=== PATIENT | female | born 1995 | race Hispanic/Latino ===

== ENCOUNTER → 2016-06-23 | Outpatient (CLI) | payer OTHER ==
[~2016-06-23] MED LIST: AMOX500C2 PO; CYCL10TA9 PO; NAPR500T PO; PRD20T PO
--- NOTE | 2016-06-23 13:34 | Diagnostic Imaging Report ---
OB ultrasound. INDICATION: Uncertain dates. FINDINGS: There are no prior studies available for comparison. There is a gestational sac within the uterus containing a single live fetus. heart motion is noted and a rate of 153 bpm is recorded. The crown-rump length suggests the estimated gestational age is 11 weeks +/- 1 week. There are no obvious abnormalities identified. The amniotic fluid volume is within normal limits. At this time, it is not certain where the placenta will develop. There is no pelvic mass or free fluid collection noted. Neither ovary is identified, however. IMPRESSION: 1. There is a single live intrauterine fetus of approximately 11 weeks gestation +/- 1 week. The EDC is January 12, 2017. 2. There are no obvious abnormalities identified. If a more sensitive evaluation of the anatomy is desired, then a follow-up exam in 8-10 weeks will be recommended for additional study. Dictated by: Dictated on workstation # [id number]
== END ==
LOC: RAD 09:17
PROVIDERS: ATTEND Family Medicine
DX: Z34.01 Encounter for supervision of normal first pregnancy, first trimester (principal); Z3A.11 11 weeks gestation of pregnancy
CPT/HCPCS: 76801

== ENCOUNTER 2016-08-30 10:23 | Emergency (ER) | payer OTHER ==
[~2016-08-30] VITALS: Ht 142.2 cm; Wt 57.6 kg
[2016-08-30] MEDS ORDERED: RT-ALBUTEROL/IPRATROPIUM 3 ML (DUONEB) VIAL ONE (10:53)
[2016-08-30] MEDS ORDERED: RT-ALBUTEROL/IPRATROPIUM 3 ML (DUONEB) VIAL INH ONE (11:00)
[2016-08-30 11:08] LABS: BASOPHILS % (AUTO) 0 % (0-10); EOSINOPHILS # (AUTO) 0.6 10^3/uL (0.0-0.3); EOSINOPHILS % (AUTO) 4 % (0-10); LYMPHOCYTES # (AUTO) 1.7 X 10^3 (1.0-4.0); LYMPHOCYTES % (AUTO) 11 % (12-44); MEAN CORPUSCULAR HEMOGLOBIN 29 PG (25-34); MEAN CORPUSCULAR HGB CONC 35 G/DL (32-36); MEAN CORPUSCULAR VOLUME 83 FL (80-99); MEAN PLATELET VOLUME 9.9 FL (7.4-10.4); MONOCYTES # (AUTO) 0.9 X 10^3 (0.0-1.0); MONOCYTES % (AUTO) 6 % (0-12); NEUTROPHILS # (AUTO) 11.9 X 10^3 (1.8-7.8); NEUTROPHILS % (AUTO) 79 % (42-75); PLATELET COUNT 272 10^3/uL (130-400); RED CELL DISTRIBUTION WIDTH 14.1 % (10.0-14.5); WHITE BLOOD COUNT 15.2 10^3/uL (4.3-11.0)
[2016-08-30 11:21] LABS: ALANINE AMINOTRANSFERASE 23 U/L (0-55); ALBUMIN 3.7 G/DL (3.2-4.5); ANION GAP 9 MMOL/L (5-14); ASPARTATE AMINO TRANSFERASE 20 U/L (5-34); BILIRUBIN,TOTAL 0.2 MG/DL (0.1-1.0); BLOOD UREA NITROGEN 4 MG/DL (7-18); BUN/CREATININE RATIO 8; CARBON DIOXIDE 21 MMOL/L (21-32); CHLORIDE 107 MMOL/L (98-107); CREATININE SERUM 0.52 MG/DL (0.60-1.30); GFR ESTIMATED > 60; GLUCOSE 93 MG/DL (70-105); POTASSIUM 3.5 MMOL/L (3.6-5.0); SODIUM 137 MMOL/L (135-145); TOTAL PROTEIN 7.1 G/DL (6.4-8.2)
[2016-08-30 11:27] LABS: BILIRUBIN,URINE NEGATIVE (NEGATIVE); KETONES,URINE NEGATIVE (NEGATIVE); LEUKOCYTE ESTERASE ,URINE 2+ (NEGATIVE); NITRITE,URINE NEGATIVE (NEGATIVE); PH,URINE 7 (5-9); PROTEIN,URINE NEGATIVE (NEGATIVE); UROBILINOGEN,URINE NORMAL (NORMAL)
[2016-08-30 11:40] LABS: SQUAMOUS EPITHELIAL CELL,UR >50 /HPF
[2016-08-30 11:44] LABS: BAND NEUTROPHILS 0 %; BASOPHILS % (MANUAL) 0 %; EOSINOPHILS % (MANUAL) 9 %; LYMPHOCYTES % (MANUAL) 12 %; NEUTROPHILS % (MANUAL) 76 %
--- NOTE | 2016-08-30 12:08 | ED Cough/URI ---
General Chief Complaint: Cough/Cold/Flu Symptoms Stated Complaint: FATIGUE Nursing Triage Note: PT REPORTS FLU LIKE SYMPTOMS SINCE LAST NOC. Source: patient, family Exam Limitations: no limitations History of Present Illness Time seen by provider: 12:03 Initial Comments This 20-year-old female presents with cough and wheezing and chest discomfort that began last night. Patient is 20 weeks into her current gestation. There is been no associated abdominal pain or vaginal bleeding. The patient denies headache, stiff neck, palpitations, chest pain, vomiting, diarrhea, or dysuria. Patient's is been uncomplicated. The patient will see her tube dispatcher for her first ultrasound this coming week. Allergies and Home Medications Allergies Coded Allergies: No Known Drug Allergies (Unverified , 02/27/15) Home Medications Amoxicillin 500 Mg Capsule, 1,000 MG PO TID, #42 Ref 0 Prescribed by: CHRISTIAN TIAN on 02/02/16 1429 Cyclobenzaprine HCl 10 Mg Tablet, 10 MG PO Q8H PRN for SPASMS, #10 Ref 0 Prescribed by: CHRISTIAN TIAN on 02/27/152032 Naproxen 500 Mg Tablet, 500 MG PO BID PRN for PAIN, #20 Ref 0 Prescribed by: CHRISTIAN TIAN on 02/27/152032 Prednisone 20 Mg Tab, 40 MG PO DAILY, #10 Ref 0 Prescribed by: CHRISTIAN TIAN on 02/27/152032 Constitutional: see HPI, No chills, No fever, malaise EENTM: No ear pain, No throat pain Respiratory: see HPI, cough, No hemoptysis, No short of breath, wheezing Cardiovascular: No chest pain, No palpitations Gastrointestinal: No abdominal pain, No nausea, No vomiting Genitourinary: No dysuria, No frequency : Yes Expected Date of Delivery: Jan 12, 2017 Musculoskeletal: no symptoms reported Skin: no symptoms reported Psychiatric/Neurological: No Symptoms Reported Hematologic/Lymphatic: No Symptoms Reported Immunological/Allergic: no symptoms reported Past Vfbrukt-Xvtxad-Omqxmv Hx Patient Social History Alcohol Use: Denies Use Recreational Drug Use: No Smoking Status: Never a Smoker 2nd Hand Smoke Exposure: No Recent Foreign Travel: No Contact w/Someone Who Travel: No Recent Infectious Disease Expo: No Recent Hopitalizations: No Immunizations Up To Date Tetanus Booster (TDap): Unknown PED Vaccines UTD: Yes Date of Influenza Vaccine: Jul 02, 2016 Seasonal Allergies Seasonal Allergies: No Surgeries HX Surgeries: No Respiratory Hx Respiratory Disorders: No Cardiovascular Hx Cardiac Disorders: No Neurological Hx Neurological Disorders: No Reproductive System : Yes Hx : 1 Hx Para: 0 Hx Reproductive Disorders: No Genitourinary Hx Genitourinary Disorders: No Gastrointestinal Hx Gastrointestinal Disorders: No Musculoskeletal Hx Musculoskeletal Disorders: No Endocrine Hx Endocrine Disorders: No HEENT HX ENT Disorders: No Cancer Hx Cancer: No Psychosocial Hx Psychiatric Problems: No Integumentary HX Skin/Integumentary Disorder: No Blood Transfusions Hx Blood Disorders: No Reviewed Nursing Assessment Reviewed/Agree w Nursing PMH: Yes Family Medical History Significant Family History: No Pertinent Family Hx Physical Exam Vital Signs Vital Sign - Last 12Hours Capillary Refill : Less Than 3 Seconds Eyes: Bilateral Eye Normal Inspection HEENT: normal ENT inspection Neck: normal inspection Respiratory: lungs clear, normal breath sounds, no respiratory distress Cardiovascular: regular rate, rhythm Gastrointestinal: normal bowel sounds, non tender Extremities: normal range of motion, non-tender Neurologic/Psychiatric: no motor/sensory deficits, alert, normal mood/affect Skin: normal color, warm/dry Progress/Results/Core Measures Results/Orders Lab Results Laboratory Tests Test 08/30/16 10:45 08/30/16 11:19 Range/Units White Blood Count 15.2 H 4.3-11.0 10^3/uL Red Blood Count 4.10 L 4.35-5.85 10^6/uL Hemoglobin 11.8 11.5-16.0 G/DL Hematocrit 34 L 35-52 % Mean Corpuscular Volume 83 80-99 FL Mean Corpuscular Hemoglobin 29 25-34 PG Mean Corpuscular Hemoglobin Concent 35 32-36 G/DL Red Cell Distribution Width 14.1 10.0-14.5 % Platelet Count 272 130-400 10^3/uL Mean Platelet Volume 9.9 7.4-10.4 FL Neutrophils (%) (Auto) 79 H 42-75 % Lymphocytes (%) (Auto) 11 L 12-44 % Monocytes (%) (Auto) 6 0-12 % Eosinophils (%) (Auto) 4 0-10 % Basophils (%) (Auto) 0 0-10 % Neutrophils # (Auto) 11.9 H 1.8-7.8 X 10^3 Lymphocytes # (Auto) 1.7 1.0-4.0 X 10^3 Monocytes # (Auto) 0.9 0.0-1.0 X 10^3 Eosinophils # (Auto) 0.6 H 0.0-0.3 10^3/uL Basophils # (Auto) 0.0 0.0-0.1 10^3/uL Neutrophils % (Manual) 76 % Lymphocytes % (Manual) 12 % Monocytes % (Manual) 3 % Eosinophils % (Manual) 9 % Basophils % (Manual) 0 % Band Neutrophils 0 % Blood Morphology Comment NORMAL Sodium Level 137 135-145 MMOL/L Potassium Level 3.5 L 3.6-5.0 MMOL/L Chloride Level 107 98-107 MMOL/L Carbon Dioxide Level 21 21-32 MMOL/L Anion Gap 9 5-14 MMOL/L Blood Urea Nitrogen 4 L 7-18 MG/DL Creatinine 0.52 L 0.60-1.30 MG/DL Estimat Glomerular Filtration Rate > 60 BUN/Creatinine Ratio 8 Glucose Level 93 70-105 MG/DL Calcium Level 9.0 8.5-10.1 MG/DL Total Bilirubin 0.2 0.1-1.0 MG/DL Aspartate Amino Transf (AST/SGOT) 20 5-34 U/L Alanine Aminotransferase (ALT/SGPT) 23 0-55 U/L Alkaline Phosphatase 75 40-136 U/L Total Protein 7.1 6.4-8.2 G/DL Albumin 3.7 3.2-4.5 G/DL Urine Color YELLOW Urine Clarity CLEAR Urine pH 7 5-9 Urine Specific [place] 1.005 L 1.016-1.022 Urine Protein NEGATIVE NEGATIVE Urine Glucose (UA) NEGATIVE NEGATIVE Urine Ketones NEGATIVE NEGATIVE Urine Nitrite NEGATIVE NEGATIVE Urine Bilirubin NEGATIVE NEGATIVE Urine Urobilinogen NORMAL NORMAL MG/DL Urine Leukocyte Esterase 2+ H NEGATIVE Urine RBC (Auto) 1+ H NEGATIVE Urine RBC RARE /HPF Urine WBC 2-5 /HPF Urine Squamous Epithelial Cells >50 H /HPF Urine Crystals NONE /LPF Urine Bacteria MODERATE H /HPF Urine Casts NONE /LPF Urine Mucus NEGATIVE /LPF Urine Culture Indicated NO Micro Results Microbiology 08/30/16 Influenza Types A,B Antigen (ROSS) - Final, Complete My Orders Orders - DEQUAN SIMMONS MD Cbc With Automated Diff (08/30/16 10:52) Comprehensive Metabolic Panel (08/30/16 10:52) Ua Culture If Indicated (08/30/16 10:52) Influenza A And B Antigens (08/30/16 10:52) Albuterol/Ipra Inhalation Soln (Duoneb I (08/30/16 11:00) Svn Sm Volume Nebulizer Rt-Rfs (08/30/16 10:52) Albuterol/Ipra Inhalation Soln (Duoneb I (08/30/16 10:53) Manual Differential (08/30/16 10:45) Medications Given in ED Current Medications Medications Dose Ordered Sig/Whit Route Start Time Stop Time Status Last Admin Dose Admin Albuterol/ Ipratropium 3 ml STK-MED ONCE .ROUTE 08/30/16 10:53 08/30/16 10:57 DC 08/30/16 10:58 3 ML Vital Signs/I&O Vital Sign - Last 12Hours 08/30/16 08/30/16 08/30/16 10:40 10:40 10:59 Temp 98.2 Pulse 85 Resp 16 B/P (MAP) 114/68 Pulse Ox 98 95 O2 Delivery Room Air Room Air Blood Pressure Mean: 83 Progress Note : Time: 12:10 Progress Note The patient's wheezing and respiratory symptoms were significantly improved with a DuoNeb treatment. The patient's white count was elevated. The patient's bedside ultrasound demonstrated a viable intrauterine with a heart rate of 150. Patient was placed on Ventolin inhaler, amoxicillin, and asked to encourage fluids and rest today. She was asked to return if any problems or questions. Departure Impression Impression: Primary Impression: Asthmatic bronchitis Qualified Codes: J45.909 - Unspecified asthma, uncomplicated Departure-Patient Inst. Decision time for Depature: 12:18 Referrals: KYARA PALACIOS MD (PCP/Family) Primary Care Physician Patient Instructions: Acute Bronchitis, Adult (DC) Add. Discharge Instructions: Z-Albert and Ventolin inhaler as prescribed. Close follow-up with your tube dispatcher this week. Return of any problems or questions. All discharge instructions reviewed with patient and/or family. Voiced understanding. DEQUAN SIMMONS MD Aug 30, 2016 12:08
[2016-08-30 12:25] VITALS: BP 114/68
--- OUTSIDE RECORDS SUMMARY | 2016-09-22 12:05 | XMS REPORT | Continuity of Care Document ---
Author Author [facility] Organization [facility] Address Unknown Phone Unavailable Allergies Active Description Code Type Severity Reaction Onset Reported/Identified Relationship to Patient Clinical Status Yes No Known Drug Allergies [id number] Drug Allergy Unknown N/ A 02/27/2015 Medications Problems Date Dx Coded Attending Type Code Diagnosis Diagnosed By 02/24/2015 SEBASTIÁN ZAZUETA MD Ot 723.1 CERVICALGIA 02/24/2015 SEBASTIÁN ZAZUETA MD Ot 784.2 SWELLING IN HEAD NECK 02/27/2015 CHRISTIAN CRUZ Ot 784.2 SWELLING IN HEAD NECK 02/27/2015 CHRISTIAN CRUZ Ot 847.0 SPRAIN OF NECK 02/27/2015 CHRISTIAN CRUZ Ot 847.1 SPRAIN THORACIC REGION 02/27/2015 CHRISTIAN CRUZ Ot E000.8 OTHER EXTERNAL CAUSE STATUS 02/27/2015 CHRISTIAN CRUZ Ot E928.9 ACCIDENT NOS 02/02/2016 CHRISTIAN CRUZ Ot H66.91 OTITIS MEDIA, UNSPECIFIED, RIGHT EAR 02/02/2016 CHRISTIAN CRUZ Ot H92.01 OTALGIA, RIGHT EAR 02/02/2016 CHRISTIAN CRUZ Ot J06.9 ACUTE UPPER RESPIRATORY INFECTION, UNSPE 06/24/2016 KYARA PALACIOS MD Ot Z34.01 ENCNTR FOR SUPRVSN OF NORMAL FIRST PREG, 06/24/2016 KYARA PALACIOS MD Ot Z3A.11 11 WEEKS GESTATION OF 07/02/2016 KYARA PALACIOS MD Ot Z34.01 ENCNTR FOR SUPRVSN OF NORMAL FIRST PREG, 07/02/2016 KYARA PALACIOS MD Ot Z3A.11 11 WEEKS GESTATION OF 08/30/2016 KYARA PALACIOS MD Ot Z34.01 ENCNTR FOR SUPRVSN OF NORMAL FIRST PREG, 08/30/2016 SUZANNE LE, KYARA N Ot Z3A.11 11 WEEKS GESTATION OF 09/01/2016 DEQUAN SIMMONS MD Ot J45.998 OTHER ASTHMA 09/01/2016 DEQUAN SIMMONS MD Ot O99.512 DISEASES OF THE RESP SYS COMP , 09/01/2016 DEQUAN SIMMONS MD Ot R05 COUGH 09/01/2016 DEQUAN SIMMONS MD Ot Z3A.20 20 WEEKS GESTATION OF Procedures Results Test Result Range Influenza virus A and B antigen detection - 02/02/16 13:50 FLU RESULT NEGATIVE FOR INFLUENZA A AND B ANTIGENS BY [facility] Complete blood count (CBC) with automated white blood cell (WBC) differential - 08/30/16 10:45 Blood leukocytes automated count (number/volume) 15.2 10*3/ uL 4.3-11.0 Blood erythrocytes automated count (number/volume) 4.10 10*6 /uL 4.35-5.85 Venous blood hemoglobin measurement (mass/volume) 11.8 g/dL 11.5-16.0 Blood hematocrit (volume fraction) 34 % 35-52 Automated erythrocyte mean corpuscular volume 83 [foz_us] 80-99 Automated erythrocyte mean corpuscular hemoglobin (mass per erythrocyte) 29 pg 25-34 Automated erythrocyte mean corpuscular hemoglobin concentration measurement ( mass/volume) 35 g/dL 32-36 Automated erythrocyte distribution width ratio 14.1 % 10.0-14.5 Automated blood platelet count (count/volume) 272 10*3/uL 130-400 Automated blood platelet mean volume measurement 9.9 [foz_us ] 7.4-10.4 Automated blood neutrophils/100 leukocytes 79 % 42-75 Automated blood lymphocytes/100 leukocytes 11 % 12-44 Blood monocytes/100 leukocytes 6 % 0-12 Automated blood eosinophils/100 leukocytes 4 % 0-10 Automated blood basophils/100 leukocytes 0 % 0-10 Blood neutrophils automated count (number/volume) 11.9 10*3 1.8-7.8 Blood lymphocytes automated count (number/volume) 1.7 10*3 1.0-4.0 Blood monocytes automated count (number/volume) 0.9 10*3 0.0-1.0 Automated eosinophil count 0.6 10*3/uL 0.0-0.3 Automated blood basophil count (count/volume) 0.0 10*3/uL 0.0-0.1 Influenza virus A and B antigen detection - 08/30/16 10:45 FLU RESULT NEGATIVE FOR INFLUENZA A AND B ANTIGENS BY [facility] Comprehensive metabolic panel - 08/30/16 10:45 Serum or plasma sodium measurement (moles/volume) 137 mmol/ L 135-145 Serum or plasma potassium measurement (moles/volume) 3.5 mmol/L 3.6-5.0 Serum or plasma chloride measurement (moles/volume) 107 mmol /L 98-107 Carbon dioxide 21 mmol/L 21-32 Serum or plasma anion gap determination (moles/volume) 9 mmol/L 5-14 Serum or plasma urea nitrogen measurement (mass/volume) 4 mg /dL 7-18 Serum or plasma creatinine measurement (mass/volume) 0.52 mg /dL 0.60-1.30 Serum or plasma urea nitrogen/creatinine mass ratio 8 NRG Serum or plasma creatinine measurement with calculation of estimated glomerular filtration rate > NRG Serum or plasma glucose measurement (mass/volume) 93 mg/dL 70-105 Serum or plasma calcium measurement (mass/volume) 9.0 mg/dL 8.5-10.1 Serum or plasma total bilirubin measurement (mass/volume) 0.2 mg/dL 0.1-1.0 Serum or plasma alkaline phosphatase measurement (enzymatic activity/volume) 75 U/L 40-136 Serum or plasma aspartate aminotransferase measurement (enzymatic activity/ volume) 20 U/L 5-34 Serum or plasma alanine aminotransferase measurement (enzymatic activity/volume ) 23 U/L 0-55 Serum or plasma protein measurement (mass/volume) 7.1 g/dL 6.4-8.2 Serum or plasma albumin measurement (mass/volume) 3.7 g/dL 3.2-4.5 Blood manual differential performed detection - 08/30/16 10:45 Blood monocytes/100 leukocytes 3 % NRG Manual blood segmented neutrophils/100 leukocytes 76 % NRG Blood band neutrophils/100 leukocytes 0 % NRG Manual blood lymphocytes/100 leukocytes 12 % NRG Manual eosinophils/100 leukocytes in nose 9 % NRG Manual blood basophils/100 leukocytes 0 % NRG Blood erythrocyte morphology finding identification NORMAL NR Complete urinalysis with reflex to culture - 08/30/16 11:19 Urine color determination YELLOW NRG Urine clarity determination CLEAR NRG Urine pH measurement by test strip 7 5- 9 Specific gravity of urine by test strip 1.005 1.016-1.022 Urine protein assay by test strip, semi-quantitative NEGATIVE NEGATIVE Urine glucose detection by automated test strip NEGATIVE NEGATIVE Erythrocytes detection in urine sediment by light microscopy 1+ NEGATIVE Urine ketones detection by automated test strip NEGATIVE NEGATIVE Urine nitrite detection by test strip NEGATIVE NEGATIVE Urine total bilirubin detection by test strip NEGATIVE NEGATIVE Urine urobilinogen measurement by automated test strip (mass/volume) NORMAL NORMAL Urine leukocyte esterase detection by dipstick 2+ NEGATIVE Automated urine sediment erythrocyte count by microscopy (number/high power field) RARE NRG Automated urine sediment leukocyte count by microscopy (number/high power field ) [HPF] NRG Bacteria detection in urine sediment by light microscopy MODERATE NRG Squamous epithelial cells detection in urine sediment by light microscopy >50 NRG Crystals detection in urine sediment by light microscopy NONE NRG Casts detection in urine sediment by light microscopy NONE NRG Mucus detection in urine sediment by light microscopy NEGATIVE NRG Complete urinalysis with reflex to culture NO NRG Encounters ACCT No. Visit Date/Time Discharge Status Pt. Type Provider Facility Loc./Unit Complaint [id number] 08/30/2016 10:25:00 2016 12:25:00 DIS Outpatient TROY LE, DEQUAN Echols [facility] ER FATIGUE [id number] 02/02/2016 10:23:00 2015 15:08:00 DIS Emergency CHRISTIAN CRUZ [facility] ER R EAR PAIN,COUGH,VOMITING [id number] 02/27/2015 19:19:00 2014 21:03:00 DIS Emergency CHRISTIAN CRUZ [facility] ER LUMP ON NECK HURTING [id number] 02/24/2015 17:21:00 2014 19:10:00 DIS Emergency CARLITA LE, SEBASTIÁN Headley [facility] ER LUMP ON NECK [id number] 06/23/2016 09:17:00 ACT Outpatient KYARA PALACIOS MD [facility] RAD NORMAL FIRST
== END 2016-08-30 12:25 | disposition home or self-care (01) ==
LOC: EDUNIT# 10:23 → ER 10:25
DX: O99.512 Diseases of the respiratory system complicating pregnancy, second trimester (principal); J45.998 Other asthma; Z3A.20 20 weeks gestation of pregnancy
CPT/HCPCS: 36415; 80053; 81000; 85007; 85027; 87804; 94640; 99283

== ENCOUNTER → 2016-09-14 | Outpatient (CLI) | payer OTHER ==
--- NOTE | 2016-09-14 18:12 | Diagnostic Imaging Report ---
INDICATION: 20-year-old female with positive TB skin test. COMPARISON: None. FINDINGS: Single view of the chest shows the cardiac contour to be normal. There are some prominent central lung markings with some minimal peribronchial cuffing. Bibasilar alveolar infiltrates are seen. Soft tissues and bony thorax are normal. IMPRESSION: 1. Some central reactive airway changes with peribronchial cuffing superimposed on some perihilar and bibasilar alveolar infiltrates. Departmental PA and lateral films of the chest would be of further value to better assess these findings. Dictated by: Dictated on workstation # [id number]
== END ==
LOC: RAD 17:15
PROVIDERS: ATTEND Family Medicine
DX: R76.11 Nonspecific reaction to tuberculin skin test without active tuberculosis (principal)
CPT/HCPCS: 71010

== ENCOUNTER → 2016-09-15 | Outpatient (CLI) | payer OTHER ==
--- NOTE | 2016-09-15 16:15 | Diagnostic Imaging Report ---
CLINICAL INDICATION: Patient with no chest complaints. Positive TB skin test. Patient is 5 months . Patient signed consent and was lead shielded. EXAM: Chest x-ray, PA and lateral views. COMPARISONS: Chest x-ray dated 09/14/2016. FINDINGS: Lungs/pleura: The previously seen bibasilar atelectasis has resolved. Lungs are now clear. There is no pneumothorax. There is no pleural effusion. Mediastinum: Unremarkable. Pulmonary vasculature: Unremarkable. Heart: Unremarkable. Bones/extrathoracic soft tissue: Unremarkable. IMPRESSION: There is no radiographic evidence of acute cardiopulmonary process or sequelae of TB. The previously seen bibasilar atelectasis has resolved. Dictated by: Dictated on workstation # [id number]
== END ==
LOC: RAD 14:51
PROVIDERS: ATTEND Family Medicine
DX: R76.11 Nonspecific reaction to tuberculin skin test without active tuberculosis (principal)
CPT/HCPCS: 71020

== ENCOUNTER → 2016-09-16 | Outpatient (CLI) | payer OTHER ==
--- NOTE | 2016-09-16 16:17 | Diagnostic Imaging Report ---
EXAMINATION: OB ultrasound. INDICATION: care. survey. FINDINGS: The heart rate is 132 BPM. The placenta is posterior and to the right. There is no placenta previa. The cervix is 4.1 cm in length and is closed. Adequate amniotic fluid is seen. The anatomic survey demonstrates a normal appearance of the four-chamber view, stomach, spine, kidneys, urinary bladder, and three-vessel cord with no ventriculomegaly and an unremarkable appearance of the posterior fossa seen. The growth parameters are: Biparietal diameter: 24 weeks 5 days. Head circumference: 24 weeks 3 days. Abdominal circumference: 24 weeks and 0 days. Femur length: 24 weeks and 1 day. These average at: 24 weeks and 3 days. This is within normal limits when compared to the current gestational age of 23 weeks and 1 day based on first trimester ultrasound dating. The biparietal diameter, however, is at the 91st percentile. IMPRESSION: Appropriate interval growth. Completed survey. Dictated by: Dictated on workstation # [id number]
== END ==
LOC: RAD 10:34
PROVIDERS: ATTEND Family Medicine
DX: Z36 Encounter for antenatal screening of mother (principal); Z3A.24 24 weeks gestation of pregnancy
CPT/HCPCS: 76805

== ENCOUNTER 2017-01-01 12:45 | Outpatient (CLI) | payer OTHER ==
[~2017-01-01] VITALS: Ht 142.2 cm; Wt 70.3 kg
[2017-01-01 13:00] VITALS: BP 127/68
[2017-01-01 13:25] LABS: BILIRUBIN,URINE NEGATIVE (NEGATIVE); KETONES,URINE NEGATIVE (NEGATIVE); LEUKOCYTE ESTERASE ,URINE 3+ (NEGATIVE); NITRITE,URINE NEGATIVE (NEGATIVE); PH,URINE 6.5 (5-9); PROTEIN,URINE 1+ (NEGATIVE); UROBILINOGEN,URINE NORMAL (NORMAL)
[2017-01-01 13:32] LABS: SQUAMOUS EPITHELIAL CELL,UR 25-50 /HPF
[2017-01-01 13:35] VITALS: BP 99/50
[2017-01-01 14:05] VITALS: BP 102/54
--- NOTE | 2017-01-04 11:23 | Physician Query-Final Dx ---
JAIDEN ROMERO 01/04/17 1123: Clinic Account Progress/Dx Physician Query: Please give diagnosis Date of Service Jan 01, 2017 at 12:45 KYARA PALACIOS MD 01/05/17 0835: Clinic Account Progress/Dx DIAGNOSIS: Diagnosis 38 weeks gestation Increased urination JAIDEN ROMERO Jan 04, 2017 11:23 KYARA PALACIOS MD Jan 05, 2017 08:35
== END 2017-01-01 14:50 | disposition home or self-care (01) ==
LOC: WSo 12:45 → LDRP 12:45 → WSo 13:05
PROVIDERS: ATTEND Family Medicine
DX: O99.89 Other specified diseases and conditions complicating pregnancy, childbirth and the puerperium (principal); R35.0 Frequency of micturition; Z3A.38 38 weeks gestation of pregnancy
CPT/HCPCS: 81000; 87088; 99213

== ENCOUNTER → 2017-01-01 | Outpatient (CLI) | payer OTHER | LOC: LAB 10:01 | PROVIDERS: ATTEND Family Medicine | DX: O36.63X0 Maternal care for excessive fetal growth, third trimester, not applicable or unspecified (principal); Z3A.00 Weeks of gestation of pregnancy not specified | CPT/HCPCS: 36415; 82951; 82952; 82962 ==

== ENCOUNTER → 2017-01-04 | Outpatient (CLI) | payer OTHER ==
--- NOTE | 2017-01-04 16:24 | Diagnostic Imaging Report ---
INDICATION: Large for gestational age. TECHNIQUE: Multiple Real-time grayscale images were obtained over the gravid uterus. COMPARISON: 09/16/2016. FINDINGS: The heart rate is 123 BPM. The amniotic fluid index is 11.8 cm. The placenta is fundal. No placenta previa. MEASUREMENTS: Biometrical measurements are as follows: Biparietal 9.74 cm, age 40 weeks 0 days, at 1.6 standard deviations above the mean. Head circumference 33.65 cm, age 38 weeks 4 days, at 0.5 standard deviations below the mean. Abdominal circumference 40.21 cm, age --- weeks --- days, at 4.5 standard deviations above the mean. The ultrasound machine does not give an estimated gestational age at this measurement with the maximum being 41 weeks. Femur length 6.98 cm, age 35 weeks 6 days, at 1.9 standard deviations below the mean. Sonographic estimate age: 38 weeks 1 days. This compares to a gestational age of 38 weeks and 6 days based on the assigned RAÚL of 01/12/2017. Sonographic estimated date of delivery: 01/17/2017. Estimated Weight: 4466 gm (+/- 652 gm). LMP percentile: 98%. heart rate: 123 beats per minute. number: 1 of 1. IMPRESSION: The fetus is large for gestational age with the abdominal circumference at 4.5 standard deviations above the mean for the gestational age. Report faxed to Dr. Forrest at 4:25 p.m. 01/04/2017/pedro luis Dictated by: Dictated on workstation # [id number]
== END ==
LOC: RAD 15:20
PROVIDERS: ATTEND Family Medicine
DX: Z36 Encounter for antenatal screening of mother (principal); O36.63X0 Maternal care for excessive fetal growth, third trimester, not applicable or unspecified; Z3A.38 38 weeks gestation of pregnancy
CPT/HCPCS: 76816

== ENCOUNTER 2017-01-11 18:19 | Inpatient (IN) | payer OTHER ==
[~2017-01-11] VITALS: Ht 134.6 cm; Wt 72.6 kg
[2017-01-11] MEDS ORDERED: MISOPROSTOL 100 MCG (CYTOTEC) TAB ONE (19:44)
[2017-01-11] MEDS ORDERED: D5 LR IV SOLUTION 1,000 ML IV ONE (19:44)
[2017-01-11 20:00] VITALS: BP 117/74
[2017-01-11] MEDS: D5 LR IV SOLUTION 1,000 ML IV SCH (20:00)
[2017-01-11] MEDS: MISOPROSTOL 100 MCG (CYTOTEC) TAB PV SCH (20:00)
[2017-01-11] MEDS ORDERED: MINERAL OIL CONCENTRATE 99.9% 15 ML UDC TOP PRN (20:00)
[2017-01-11 20:03] LABS: BASOPHILS % (AUTO) 0 % (0-10); EOSINOPHILS # (AUTO) 0.3 10^3/uL (0.0-0.3); EOSINOPHILS % (AUTO) 4 % (0-10); LYMPHOCYTES # (AUTO) 1.6 X 10^3 (1.0-4.0); LYMPHOCYTES % (AUTO) 22 % (12-44); MEAN CORPUSCULAR HEMOGLOBIN 28 PG (25-34); MEAN CORPUSCULAR HGB CONC 34 G/DL (32-36); MEAN CORPUSCULAR VOLUME 82 FL (80-99); MEAN PLATELET VOLUME 10.6 FL (7.4-10.4); MONOCYTES # (AUTO) 0.6 X 10^3 (0.0-1.0); MONOCYTES % (AUTO) 9 % (0-12); NEUTROPHILS # (AUTO) 4.9 X 10^3 (1.8-7.8); NEUTROPHILS % (AUTO) 65 % (42-75); PLATELET COUNT 182 10^3/uL (130-400); RED BLOOD COUNT 3.97 10^6/uL (4.35-5.85); RED CELL DISTRIBUTION WIDTH 14.6 % (10.0-14.5); WHITE BLOOD COUNT 7.5 10^3/uL (4.3-11.0)
--- NOTE | 2017-01-11 20:34 | History & Physical-OB ---
OB - Chief Complaint & HPI Date/Time Date of Admission: Date of Admission: Jan 11, 2017 at 18:19 Time Seen by Provider: 14:20 Chief Complaint/History OB-Reason for Admission/Chief: Induction of Labor Hx : 1 Hx Para: 0 Expected Date of Delivery: Jan 11, 2017 Gestational Age in Weeks: 40 Gestational Age in Days: 0 Indication for induction: other (suspected LGA) History of Labs A+, antibody neg, RI. GC/chlamydia neg. HIV/HepB/RPR NR. 1 hour glucola normal. GBS neg. Allergies and Home Medications Allergies Coded Allergies: No Known Drug Allergies (Unverified , 02/27/15) Home Medications No Active Prescriptions or Reported Meds OB - History Hx of Present Care: Yes Ultrasounds: Normal mid trimester US Obstetrical Complications: None Obstetrical History Hx : 1 Hx Para: 0 Hx Termination: No Hx Multiple Gestation: No Hx Ectopic : No Hx Stillbirth: No Hx Complication: No Hx Induced Hypertens: No Hx Maternal Gestational Diabet: No Hx Hemorrhage: No Delivery History Hx Dystocia: No Hx Forceps Assisted Delivery: No Hx Vacuum Extraction Assisted: No Hx Placenta Abnormality: No Hx Distress: No Hx Large For Gestational Age I: No Hx Small for Gestational Age I: No Hx Section: No Hx Vaginal Delivery Post C-Sec: No Hx Blood Disorders: No Adverse Rxn to Tranfusion: No Patient Past Medical History PMHx: Latent tuberculosis (dx during , 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) PSurgHx: Denies Social History/Family History HIV/AIDS: No Recent Infectious Disease Expo: No Sexually Transmitted Disease: No Alcohol Use: Denies Use Recreational Drug Use: No Smoking Cessation: Never smoker 2nd Hand Smoke Exposure: No Immunizations Tetanus Booster (TDap): Less than 5yrs Date of Influenza Vaccine: Jul 02, 2016 Rubella: immune RPR/VDRL: Negative GBS Status: Negative HBsAG: Negative OB - Admission Exam Physical Exam Date Seen by Provider: Jan 07, 2017 Time Seen by Provider: 14:20 Cervical Dilatation: None Effacement: 0% Station: Ballotable Membranes: Intact Levy Scoring Tool (Modified) Dilation (cm): 0/Closed (0) Effacement (%): 0-30% (0) Descent/Station: -3 (0) Cervix Consistency: Medium(1) Cervix Position: Middle/Mid-Position (1) Subtract 1 point for: Nulliparity (-1) Levy Score: 1 Labs Laboratory Tests Test 01/11/17 19:30 Range/Units White Blood Count 7.5 4.3-11.0 10^3/uL Red Blood Count 3.97 L 4.35-5.85 10^6/uL Hemoglobin 11.2 L 11.5-16.0 G/DL Hematocrit 33 L 35-52 % Mean Corpuscular Volume 82 80-99 FL Mean Corpuscular Hemoglobin 28 25-34 PG Mean Corpuscular Hemoglobin Concent 34 32-36 G/DL Red Cell Distribution Width 14.6 H 10.0-14.5 % Platelet Count 182 130-400 10^3/uL Mean Platelet Volume 10.6 H 7.4-10.4 FL Neutrophils (%) (Auto) 65 42-75 % Lymphocytes (%) (Auto) 22 12-44 % Monocytes (%) (Auto) 9 0-12 % Eosinophils (%) (Auto) 4 0-10 % Basophils (%) (Auto) 0 0-10 % Neutrophils # (Auto) 4.9 1.8-7.8 X 10^3 Lymphocytes # (Auto) 1.6 1.0-4.0 X 10^3 Monocytes # (Auto) 0.6 0.0-1.0 X 10^3 Eosinophils # (Auto) 0.3 0.0-0.3 10^3/uL Basophils # (Auto) 0.0 0.0-0.1 10^3/uL OB - Assessment/Plan/Diagnosis Assessment Assessment: induction of labor, other (suspected LGA (US on 01/04 with EFW 4466 grams and AC 4.5 SD above mean) with negative 3 hour glucola last week, MORA 11) Plan Plan: Induction Induction Method: per Misoprostol Protocol Copy Copies To 1: KYARA PALACIOS MD, BETHANY N MD Jan 11, 2017 20:34
[2017-01-11 20:40] VITALS: BP 124/74
[2017-01-11 21:40] VITALS: BP 123/70
[2017-01-11] MEDS: CATHETER FLUSH 10 ML SYR IV SCH (22:34)
[2017-01-11 22:40] VITALS: BP 114/58
[2017-01-11 23:40] VITALS: BP 126/65
[2017-01-12] VITALS (33 sets, daily range): BP systolic 91–128; BP diastolic 52–76
[2017-01-12] MEDS: MISOPROSTOL 100 MCG (CYTOTEC) TAB PV SCH (01:17)
[2017-01-12] MEDS: D5 LR IV SOLUTION 1,000 ML IV SCH (03:19)
[2017-01-12] MEDS: CATHETER FLUSH 10 ML SYR IV SCH (06:55)
[2017-01-12] MEDS ORDERED: OXYTOCIN/NORMAL SALINE 500 ML IV SCH ×2 (09:15→16:47)
[2017-01-12] MEDS ORDERED: fentaNYL INJECTION 100 MCG/2 ML AMP IVP PRN (09:15)
[2017-01-12] MEDS ORDERED: FAMOTIDINE 20MG/2ML IV (PEPCID) IV ONE (14:00)
[2017-01-12] MEDS ORDERED: METOCLOPRAMIDE INJ 10 MG/2 ML (REGLAN) IV ONE (14:00)
[2017-01-12] MEDS ORDERED: CITRIC ACID/SOB CIT (BICITRA) 30 ML UDC PO ONE (14:00)
[2017-01-12] MEDS ORDERED: LACTATED RINGERS 1,000 ML IV ONE (14:12)
[2017-01-12] MEDS ORDERED: ceFAZolin 2 GM/50 ML NS 50 ML IV ONE (14:15)
--- NOTE | 2017-01-12 14:29 | Consultation ---
History of Present Illness History of Present Illness Patient Consulted On(bunny/time) 01/12/17 14:25 Date Seen by Provider: Jan 12, 2017 Time Seen by Provider: 14:15 Reason for Visit: Induction of labor at 40 weeks gestation History of Present Illness this is a 21 year old at 40 weeks of gestation. Patient of Dr. Forrest at [facility]. She has history of latent TB. US done 01/04/17 showed EFW of 4469 grams. Has had cervical ripening and pitocin without cervical dilation and the head is not in the pelvis. Due to suspected CPD at 40 1/7 weeks, will plan primary section. Risks and benefits of the procedure were explained to the patient and her family. Risks, including bleeding, infection, injury to bowel, bladder and ureter were explained and the patient has signed an appropriate consent. will use preoperative Ancef and perioperative SCDs. Allergies and Home Medications Allergies Coded Allergies: No Known Drug Allergies (Unverified , 02/27/15) Home Medications No Active Prescriptions or Reported Meds Past Dqfgkns-Bftwib-Helgkw Hx Patient Social History Alcohol Use: Denies Use Recreational Drug Use: No Smoking Status: Never a Smoker 2nd Hand Smoke Exposure: No Recent Foreign Travel: No Contact w/Someone Who Travel: No Recent Infectious Disease Expo: No Recent Hopitalizations: No Physical Abuse Screen: No Sexual Abuse: No Immunizations Up To Date Tetanus Booster (TDap): Less than 5yrs PED Vaccines UTD: Yes Date of Influenza Vaccine: Jul 02, 2016 Seasonal Allergies Seasonal Allergies: No Surgeries HX Surgeries: No Respiratory Hx Respiratory Disorders: Yes (latent TB, found incidentally) Cardiovascular Hx Cardiac Disorders: No Neurological Hx Neurological Disorders: No Reproductive System Hx : 1 Hx Para: 0 Hx Reproductive Disorders: No Sexually Transmitted Disease: No HIV/AIDS: No Female Reproductive Disorders: Denies Genitourinary Hx Genitourinary Disorders: No Gastrointestinal Hx Gastrointestinal Disorders: No Musculoskeletal Hx Musculoskeletal Disorders: No Endocrine Hx Endocrine Disorders: No HEENT HX ENT Disorders: No Cancer Hx Cancer: No Psychosocial Hx Psychiatric Problems: No Integumentary HX Skin/Integumentary Disorder: No Blood Transfusions Hx Blood Disorders: No Adverse Reaction to a Blood Tr: No Family Medical History Significant Family History: No Pertinent Family Hx Family Medial History: Patient reports no known family medical history. Review of Systems-General Constitutional: no symptoms reported Physical Exam-General Problems Physical Exam Vital Signs Vital Sign - Last 12Hours 01/11/17 20:00 Temp 99.1 Pulse 86 Resp 20 B/P (MAP) 117/74 O2 Delivery Room Air Capillary Refill : General Appearance: WD/WN, mild distress Respiratory: lungs clear Cardiovascular: regular rate, rhythm Gastrointestinal: other (Fetus palpates 9-10 lbs) Assessment/Plan Assessment/Plan Admission Diagnosis/Plan 21 y/o at 40 1/7 weeks with suspected cephalopelvic disproportion. Suspected macrosomia., Failed induction Plan primary section. See above Clinical Quality Measures DVT/VTE Risk/Contraindication: Risk Factor Score Per Nursin RFS Level Per Nursing on Admit: 1=Low/No VTE PPX TELLO BOYD DO Jan 12, 2017 14:29
[2017-01-12] MEDS ORDERED: OXYTOCIN/NORMAL SALINE 1,000 ML IV ONE (14:40)
[2017-01-12] MEDS ORDERED: fentaNYL INJECTION 100 MCG/2 ML AMP ONE (14:40)
[2017-01-12] MEDS ORDERED: ONDANSETRON 4 MG/2 ML (SDV) Z0FRAN ONE (14:44)
[2017-01-12] MEDS ORDERED: DEXAMETHASONE PF 10 MG/ML (DECADRON) VIAL ONE (14:44)
[2017-01-12] MEDS ORDERED: LIDOCAINE PF 2% 5 ML (XYLOCAINE) VIAL ONE (15:09)
[2017-01-12] MEDS ORDERED: METHYLERGONOVINE 0.2 MG/ML (METHERGINE) AMP ONE (15:50)
[2017-01-12] MEDS ORDERED: NALOXONE 0.4 MG/ML 1 ML (NARCAN) VIAL IV PRN (16:30)
[2017-01-12] MEDS ORDERED: diphenhydrAMINE 50 MG/ML INJ (BENADRYL) IV PRN (16:30)
[2017-01-12] MEDS ORDERED: ONDANSETRON 4 MG/2 ML (SDV) Z0FRAN IV PRN (16:30)
[2017-01-12] MEDS ORDERED: D5 LR IV SOLUTION 1,000 ML IV SCH (16:47)
--- NOTE | 2017-01-12 16:47 | Cesarean Section Operative ---
Procedure Procedure Note Pre-operative Diagnosis: Morenita Johnson is a 21 /Para 1 / 0, Gestational Age 40 weeks, cpd, suspected macrosomia, failed induction Post-operative Diagnosis: same, hemorrhage Procedure: Primary low transverse section Physician: TELLO BOYD Cabinet Professional: catracho Montano Estimated blood loss: 1000 mL Disposition: stable Findings: Viable male infant, Apgars 9/9, weight 9#13oz, intact placenta, 3vc, normal appearing uterus, tubes, and ovaries. Indications:Morenita Johnson is a 21 /Para 1 / 0,Gestational Age 40 weeks, cpd, suspected macrosomia, failed induction Procedure Details: The patient was seen in pre-op and the procedure was discussed with the patient in full, including the risks, benefits, and alternatives. All questions were answered. The patient was taken to the operating room and a time out was performed, verifying patient and procedure.See consultation note After spinal anesthesia was placed by our anesthesia colleagues, the patient was placed in the dorsal supine with leftward tilt for uterine displacement.~ Her abdomen was then prepped and draped in the typical sterile fashion. A Pfannenstiel skin incision was made using a scalpel and carried down through the underlying fascia. The fascia was incised in the midline and tented up using Esme clamps. On both the inferior and superior fascia side the rectus muscle was dissected off bluntly and sharply using Lowery scissors. The peritoneum was identified and entered bluntly in the midline. This was then stretched laterally using manual strength. After entering the abdominal cavity and confirming lack of intraperitoneal adhesions, an extra large Ac retractor was placed and the lower uterine segment was visualized. A scalpel was utilized to make a low transverse uterine incision. Amniotomy was performed with an Allis clamp with return of copious clear fluid. The infant's head was grasped and brought to the level of the incision with assistance of the silastic suction. The head was in the transverse position and not engaged. Fundal pressure was applied and infant was delivered without difficulty. Mouth and nares were suctioned with bulb suction. After the umbilical cord was clamped and cut, the infant was handed off to the pediatric staff. A sample of cord blood was then obtained. The placenta was delivered intact via uterine massage. The uterus was cleared of all clots and debris. The uterine incision was closed using 0 Vicryl in a running locked fashion. A second imbricated layer was placed using 0 Vicryl in a running fashion as well. The bilateral tubes and ovaries appeared normal. At this point, despite IV oxytocin administration, the uterus remained very boggy. The bogginess did not improve with uterine massage. Intrauterine IM Methergine was given. The uterus was placed back into the abdominal cavity and abdominal gutters were cleared of all clots and debris. A final check of the uterine incision showed it to be hemostatic. Intercede was placed. The peritoneum was closed using 3-0 Vicryl in a running fashion. The muscles were reapproximated with a figure of eight stitch of 3-0 Vicryl. The fascia was closed with 0 Vicryl in a running fashion. The subcutaneous space was hemostatic, and irrigated. The subcutaneous space was closed with 3-0 Plain in several single interrupted stitches. The skin was then closed using 4-0 Monocryl in a running subcuticular fashion. The skin edges were reapproximated together and were hemostatic. A pressure dressing was applied. All sponge, lap and needle counts were correct at the end of the procedure per nursing. Vitals - Labs Vital Signs - I&O Vital Signs Date Time Temp Pulse Resp B/P (MAP) Pulse Ox O2 Delivery O2 Flow Rate FiO2 01/12/17 14:30 70 18 128/68 01/12/17 14:15 62 18 114/65 01/12/17 14:00 70 18 124/75 01/12/17 13:45 62 18 95/53 01/12/17 13:30 68 18 91/54 01/12/17 13:15 78 18 116/57 01/12/17 12:55 69 20 113/60 01/12/17 12:40 98.9 77 20 106/56 01/12/17 12:25 68 20 107/59 01/12/17 12:10 77 20 112/61 01/12/17 11:55 75 20 108/61 01/12/17 11:40 74 20 109/59 01/12/17 11:30 67 20 109/58 01/12/17 11:15 67 20 116/62 01/12/17 11:00 67 20 113/63 01/12/17 10:30 69 20 110/60 01/12/17 09:40 67 18 121/56 01/12/17 08:40 70 18 122/76 01/12/17 07:40 82 18 106/59 01/12/17 06:54 67 18 118/63 01/12/17 05:41 66 18 104/52 01/12/17 04:43 99.1 78 18 115/54 Room Air 01/12/17 03:44 72 18 95/52 01/12/17 02:44 67 18 97/53 01/12/17 01:40 98.6 71 18 121/55 Room Air 01/12/17 00:40 72 18 127/66 01/11/17 23:40 98.7 70 18 126/65 Room Air 01/11/17 22:40 79 18 114/58 01/11/17 21:40 98.2 74 18 123/70 Room Air 01/11/17 20:40 83 20 124/74 01/11/17 20:00 99.1 86 20 117/74 Room Air I & O 01/12/17 06:59 Intake Total 1900 ml Balance 1900 ml Labs Laboratory Tests 01/11/17 19:30: White Blood Count 7.5, Red Blood Count 3.97L, Hemoglobin 11.2L, Hematocrit 33L, Mean Corpuscular Volume 82, Mean Corpuscular Hemoglobin 28, Mean Corpuscular Hemoglobin Concent 34, Red Cell Distribution Width 14.6H, Platelet Count 182, Mean Platelet Volume 10.6H, Neutrophils (%) (Auto) 65, Lymphocytes (%) (Auto) 22 , Monocytes (%) (Auto) 9, Eosinophils (%) (Auto) 4, Basophils (%) (Auto) 0, Neutrophils # (Auto) 4.9, Lymphocytes # (Auto) 1.6, Monocytes # (Auto) 0.6, Eosinophils # (Auto) 0.3, Basophils # (Auto) 0.0 TELLO BOYD DO Jan 12, 2017 16:47
[2017-01-12] MEDS ORDERED: MISOPROSTOL 200 MCG (CYTOTEC) TABLET PR NR (17:00)
[2017-01-12] MEDS ORDERED: HYDROmorphone (DILAUDID) 2 MG/ML VIAL IVP PRN (17:00)
[2017-01-12] MEDS ORDERED: TETANUS,DIPTH,PERTUSS P/F (BOOSTRIX) 0.5 ML VIAL IM SCH (17:00)
[2017-01-12] MEDS ORDERED: MEASLES,MUMPS,RUBELLA 1 EA INJ SC SCH (17:00)
[2017-01-12] MEDS: FERROUS SULF 325 MG (IRON) TAB PO SCH (17:51)
[2017-01-12] MEDS: KETOROLAC 30 MG/ML VIAL IVP SCH ×2 (18:11→23:53)
[2017-01-12] MEDS: HYDROcodone/APAP 5 MG/325 MG (LORTAB) TAB PO PRN (21:09)
[2017-01-12] MEDS: DOCUSATE SODIUM 100 MG (COLACE) CAP PO SCH (21:09)
[2017-01-13] VITALS (11 sets, daily range): BP systolic 91–115; BP diastolic 51–70
[2017-01-13] MEDS: HYDROcodone/APAP 5 MG/325 MG (LORTAB) TAB PO PRN ×7 (04:19→21:11)
[2017-01-13 06:39] LABS: BASOPHILS % (AUTO) 0 % (0-10); EOSINOPHILS % (AUTO) 0 % (0-10); LYMPHOCYTES # (AUTO) 1.8 X 10^3 (1.0-4.0); LYMPHOCYTES % (AUTO) 16 % (12-44); MEAN CORPUSCULAR HEMOGLOBIN 27 PG (25-34); MEAN CORPUSCULAR HGB CONC 33 G/DL (32-36); MEAN CORPUSCULAR VOLUME 84 FL (80-99); MEAN PLATELET VOLUME 10.2 FL (7.4-10.4); MONOCYTES # (AUTO) 0.9 X 10^3 (0.0-1.0); MONOCYTES % (AUTO) 8 % (0-12); NEUTROPHILS # (AUTO) 8.6 X 10^3 (1.8-7.8); NEUTROPHILS % (AUTO) 76 % (42-75); PLATELET COUNT 155 10^3/uL (130-400); RED BLOOD COUNT 2.19 10^6/uL (4.35-5.85); RED CELL DISTRIBUTION WIDTH 14.4 % (10.0-14.5); WHITE BLOOD COUNT 11.3 10^3/uL (4.3-11.0)
[2017-01-13] MEDS: KETOROLAC 30 MG/ML VIAL IVP SCH ×2 (06:42→15:15)
[2017-01-13] MEDS ORDERED: NS IV 500 ML 500 ML IV SCH (07:01)
[2017-01-13] MEDS ORDERED: ACETAMINOPHEN 325 MG TABLET/CAPLET (TYLENOL) PO ONE (07:15)
[2017-01-13] MEDS ORDERED: diphenhydrAMINE 25 MG TAB (BENADRYL) PO NR (07:15)
--- NOTE | 2017-01-13 08:44 | Postpartum Progress Note ---
Post Op Post-operative Day #1 s/p PLTCS Subjective: Patient is without complaints. Ambulating minimally, voiding after roberson removed. Tolerating a regular diet without nausea or vomiting. Normal lochia. Pain is well controlled with oral pain medications. Passing flatus. post hemorrhage. some dizzinexx Objective: Laboratory Tests Test 01/13/17 06:21 Range/Units White Blood Count 11.3 H 4.3-11.0 10^3/uL Red Blood Count 2.19 L 4.35-5.85 10^6/uL Hemoglobin 6.0 #*L 11.5-16.0 G/DL Hematocrit 18 *L 35-52 % Mean Corpuscular Volume 84 80-99 FL Mean Corpuscular Hemoglobin 27 25-34 PG Mean Corpuscular Hemoglobin Concent 33 32-36 G/DL Red Cell Distribution Width 14.4 10.0-14.5 % Platelet Count 155 130-400 10^3/uL Mean Platelet Volume 10.2 7.4-10.4 FL Neutrophils (%) (Auto) 76 H 42-75 % Lymphocytes (%) (Auto) 16 12-44 % Monocytes (%) (Auto) 8 0-12 % Eosinophils (%) (Auto) 0 0-10 % Basophils (%) (Auto) 0 0-10 % Neutrophils # (Auto) 8.6 H 1.8-7.8 X 10^3 Lymphocytes # (Auto) 1.8 1.0-4.0 X 10^3 Monocytes # (Auto) 0.9 0.0-1.0 X 10^3 Eosinophils # (Auto) 0.0 0.0-0.3 10^3/uL Basophils # (Auto) 0.0 0.0-0.1 10^3/uL Vital Sign - Last 12Hours 01/12/17 01/12/17 01/12/17 01/13/17 21:08 22:20 23:34 00:30 Temp 100.9 99.2 98.4 Pulse 107 82 104 Resp 18 18 18 B/P (MAP) 117/75 102/60 98/65 Pulse Ox 99 98 98 O2 Delivery Room Air Room Air Room Air 01/13/17 01/13/17 01/13/17 04:19 07:40 08:25 Temp 99.2 98.0 98.0 Pulse 104 79 88 Resp 18 16 22 B/P (MAP) 98/65 100/63 110/67 Pulse Ox 98 97 97 O2 Delivery Room Air Room Air Room Air Physical Exam: General - Alert and oriented, no apparent distress Abdomen - Soft, appropriately tender to palpation, non-distended, fundus firm at umbilicus Incision - clean, dry and intact; no erythema or induration, no drainage Extremities - no edema, negative Db's bilaterally Assessment: 1. post-operative day # 1, status post PLTCS. Recovering well 2. post hemorrhage - receiving blood, 2 units PRBCS Plan: Routine post-operative care. Encourage breast feeding. Encourage ambulation. VTE prophylaxis: SCDs. Ferrous sulfate supplementation. Plan for discharge two - three days Vitals - Labs Vital Signs - I&O Vital Signs Date Time Temp Pulse Resp B/P (MAP) Pulse Ox O2 Delivery O2 Flow Rate FiO2 01/13/17 08:25 98.0 88 22 110/67 97 Room Air 01/13/17 07:40 98.0 79 16 100/63 97 Room Air 01/13/17 04:19 99.2 104 18 98/65 98 Room Air 01/13/17 00:30 98.4 01/12/17 23:34 99.2 104 18 98/65 98 Room Air 01/12/17 22:20 100.9 82 18 102/60 98 Room Air 01/12/17 21:08 107 18 117/75 99 Room Air 01/12/17 19:45 98.3 103 18 106/66 100 Room Air 01/12/17 18:45 62 18 114/75 Room Air 01/12/17 18:30 70 18 128/68 Room Air 01/12/17 18:15 98.6 76 18 116/64 Room Air 01/12/17 14:30 70 18 128/68 01/12/17 14:15 62 18 114/65 01/12/17 14:00 70 18 124/75 01/12/17 13:45 62 18 95/53 01/12/17 13:30 68 18 91/54 01/12/17 13:15 78 18 116/57 01/12/17 12:55 69 20 113/60 01/12/17 12:40 98.9 77 20 106/56 01/12/17 12:25 68 20 107/59 01/12/17 12:10 77 20 112/61 01/12/17 11:55 75 20 108/61 01/12/17 11:40 74 20 109/59 01/12/17 11:30 67 20 109/58 01/12/17 11:15 67 20 116/62 01/12/17 11:00 67 20 113/63 01/12/17 10:30 69 20 110/60 01/12/17 09:40 67 18 121/56 I & O 01/14/17 07:00 Intake Total 1270 ml Balance 1270 ml Labs Laboratory Tests 01/13/17 06:21: White Blood Count 11.3H, Red Blood Count 2.19L, Hemoglobin 6.0#*L, Hematocrit 18 *L, Mean Corpuscular Volume 84, Mean Corpuscular Hemoglobin 27, Mean Corpuscular Hemoglobin Concent 33, Red Cell Distribution Width 14.4, Platelet Count 155, Mean Platelet Volume 10.2, Neutrophils (%) (Auto) 76H, Lymphocytes (% ) (Auto) 16, Monocytes (%) (Auto) 8, Eosinophils (%) (Auto) 0, Basophils (%) ( Auto) 0, Neutrophils # (Auto) 8.6H, Lymphocytes # (Auto) 1.8, Monocytes # (Auto ) 0.9, Eosinophils # (Auto) 0.0, Basophils # (Auto) 0.0 TELLO BOYD DO Jan 13, 2017 08:44
--- NOTE | 2017-01-13 09:27 | Anesthesia-Regional Post-Op ---
Regional Patient Condition Mental Status: Alert, Oriented x3 Circulation: Same as Pre-Op Headache: Absent Sensation: Full Recovery Motor Block: Absent Post Op Complications Complications None Follow Up Care/Instructions Patient Instructions None needed. Anesthesia/Patient Condition Patient is doing well, no complaints, stable vital signs, no apparent adverse anesthesia problems. No complications reported per nursing. BELLE KOVACS CRNA Jan 13, 2017 09:27
[2017-01-13] MEDS ORDERED: IBUPROFEN 600 MG (MOTRIN) TAB PO ONE (11:13)
[2017-01-13] MEDS: DOCUSATE SODIUM 100 MG (COLACE) CAP PO SCH ×2 (11:21→21:11)
[2017-01-13] MEDS: IBUPROFEN 600 MG (MOTRIN) TAB PO SCH ×3 (11:22→23:39)
[2017-01-13] MEDS: CATHETER FLUSH 10 ML SYR IV SCH ×3 (13:44→21:18)
[2017-01-13] MEDS: FERROUS SULF 325 MG (IRON) TAB PO SCH ×2 (16:42→17:38)
[2017-01-14] MEDS: HYDROcodone/APAP 5 MG/325 MG (LORTAB) TAB PO PRN ×4 (01:04→12:03)
[2017-01-14] MEDS: CATHETER FLUSH 10 ML SYR IV SCH (05:29)
[2017-01-14 05:30] VITALS: BP 109/63
[2017-01-14] MEDS: IBUPROFEN 600 MG (MOTRIN) TAB PO SCH ×2 (05:31→12:04)
[2017-01-14 08:00] VITALS: BP 106/70
[2017-01-14] MEDS: DOCUSATE SODIUM 100 MG (COLACE) CAP PO SCH (08:35)
[2017-01-14] MEDS: FERROUS SULF 325 MG (IRON) TAB PO SCH (08:35)
--- NOTE | 2017-01-14 08:40 | Postpartum Progress Note ---
Post Op Post-operative Day #2 s/p PLTCS, pp hemorrhage, 2 units PRBCs Subjective: Patient is without complaints. Ambulating, voiding after roberson removed. Tolerating a regular diet without nausea or vomiting. Normal lochia. Pain is well controlled with oral pain medications. Passing flatus. doing well. Has not ambulated in halls yet though Objective: Laboratory Tests Test 01/13/17 16:26 01/14/17 06:00 Range/Units Hemoglobin 8.3 #L 8.7 L 11.5-16.0 G/DL Hematocrit 25 L 26 L 35-52 % Vital Sign - Last 12Hours 01/13/17 01/14/17 23:52 05:30 Temp 97.9 97.9 Pulse 89 77 Resp 18 18 B/P (MAP) 91/54 109/63 Pulse Ox 98 98 O2 Delivery Room Air Room Air Physical Exam: General - Alert and oriented, no apparent distress Abdomen - Soft, appropriately tender to palpation, non-distended, fundus firm at umbilicus Incision - clean, dry and intact; no erythema or induration, no drainage Extremities - no edema, negative Db's bilaterally Assessment: 1. post-operative day # 2 s/p PLTCS, CPD. Recovering well, hemodynamically stable Acute blood loss anemia, pp hemorrhage, s/p 2 units PRBCs, Hgb stable today Plan: Routine post-operative care. Encourage breast feeding. Encourage ambulation. VTE prophylaxis: SCDs. Ferrous sulfate supplementation. Plan for discharge today or tomorrow Vitals - Labs Vital Signs - I&O Vital Signs Date Time Temp Pulse Resp B/P (MAP) Pulse Ox O2 Delivery O2 Flow Rate FiO2 01/14/17 05:30 97.9 77 18 109/63 98 Room Air 01/13/17 23:52 97.9 89 18 91/54 98 Room Air 01/13/17 19:52 98.4 98 18 115/70 98 Room Air 01/13/17 16:45 98.6 96 18 109/67 99 Room Air 01/13/17 13:38 98.5 91 18 108/58 99 Room Air 01/13/17 11:55 98.7 78 18 107/57 99 Room Air 01/13/17 11:55 98.7 78 18 107/57 99 Room Air 01/13/17 11:36 98.8 87 18 96/57 99 Room Air 01/13/17 11:19 99.0 88 18 98/51 99 Room Air 01/13/17 08:44 98.0 89 20 107/67 99 Room Air Labs Laboratory Tests 01/13/17 16:26: Hemoglobin 8.3#L, Hematocrit 25L 01/14/17 06:00: Hemoglobin 8.7L, Hematocrit 26L TELLO BOYD DO Jan 14, 2017 08:40
[2017-01-14] MEDS ORDERED: IBUP-1773 PO (12:51)
[2017-01-14] MEDS ORDERED: HYDR-3812 PO (12:51)
[2017-01-14] MEDS ORDERED: FERR-74 PO (12:51)
--- NOTE | 2017-01-14 12:53 | Discharge Inst-Women's Service ---
Discharge Inst-Women's Serv Depart Medication/Instructions New, Converted or Re-Newed RX: RX on Chart Final Diagnosis keep incision clean and dry nothing in the vagina for 6 weeks no lifting over 25 lbs Consults/Follow Up Additional Follow Up: Yes (1 weekwith Festus and [address] Forrest) Activity Activity: Activity as Tolerated Driving Instructions: No Driving for 1 Week NO SMOKING: NO SMOKING Nothing Inside Vagina: No Douching, No [place], No Tampons Diet Discharge Diet: No Restrictions Symptoms to Report to : Bleeding Excessive, Pain Increased, Fever Over 101 Degrees F, Vaginal Bleeding Increase, Cramps in Feet or Legs, Vaginal Discharge Foul Skin/Wound Care Infection Signs and Symptoms: Increased Redness, Foul Odor of Wound, Increased Drainage, Skin Itchy or Has a Rash, Increased Swelling, Temperature Above 101 F Operative Area Clean and Dry: Keep Incision Clean/Dry Stitches/[place]/Dermabond: Dermabond Bathing Instructions: TELLO Sullivan DO Jan 14, 2017 12:53 pm
[2017-01-14 13:30] VITALS: BP 100/75
[2017-01-14 16:15] VITALS: BP 100/75
== END 2017-01-14 16:15 | disposition home or self-care (01) | DRG 765 ==
LOC: LDRP 18:19
PROVIDERS: ADMIT Family Medicine; ATTEND Family Medicine
PROC: 10D00Z1 Extraction of Products of Conception, Low, Open Approach (ICD-10-PCS; principal; 2017-01-12 15:00)
DX: O48.0 Post-term pregnancy (principal); O72.1 Other immediate postpartum hemorrhage; O99.03 Anemia complicating the puerperium; D62 Acute posthemorrhagic anemia; O34.593 Maternal care for other abnormalities of gravid uterus, third trimester; N85.8 Other specified noninflammatory disorders of uterus; O36.63X0 Maternal care for excessive fetal growth, third trimester, not applicable or unspecified; O33.9 Maternal care for disproportion, unspecified; Z3A.40 40 weeks gestation of pregnancy; Z37.0 Single live birth
CPT/HCPCS: 36415; 85014; 85018; 85025; 86850; 86900; 86901; 86920; 94664

== ENCOUNTER → 2017-03-08 | Outpatient (CLI) | payer MEDICAID, OTHER ==
[~2017-03-08] MED LIST changes: +FERR-74 PO; +HYDR-3812 PO; +IBUP-1773 PO
--- NOTE | 2017-03-08 13:52 | Diagnostic Imaging Report ---
Ultrasound of the liver. INDICATION: Elevated liver enzymes. FINDINGS: The visualized portions of the pancreas appear grossly unremarkable. The liver is fairly homogeneous with no focal lesion seen. Hepatopetal flow in the portal vein is noted. The gallbladder demonstrates no stones or wall thickening. No pericholecystic fluid. The CBD is 3 mm in caliber. The right kidney is 12.4 cm in length with no hydronephrosis or focal lesion. No fluid collection or ascites seen. Sonographic Guerra's sign is reportedly negative. IMPRESSION: Unremarkable exam. Dictated by: Dictated on workstation # [id number]
== END ==
LOC: RAD 07:41
PROVIDERS: ATTEND Family Medicine
DX: R74.8 Abnormal levels of other serum enzymes (principal)
CPT/HCPCS: 76705

== ENCOUNTER → 2017-03-16 | Outpatient (CLI) | payer OTHER ==
--- NOTE | 2017-03-16 19:01 | Diagnostic Imaging Report ---
Transabdominal and transvaginal pelvic ultrasound. INDICATION: bleeding. FINDINGS: The uterus is 7.6 x 5.3 x 3.4 cm. The endometrial stripe is 0.6 cm in thickness. The myometrium is slightly heterogeneous with no focal mass. The ovaries are not seen, probably obscured by bowel gas. IMPRESSION: The myometrium is slightly heterogeneous with no discrete focal lesion seen. The ovaries are not seen on this exam. Dictated by: Dictated on workstation # [id number]
== END ==
LOC: RAD 14:12
PROVIDERS: ATTEND Nurse Practitioner Family
DX: O72.1 Other immediate postpartum hemorrhage (principal)
CPT/HCPCS: 76830; 76856

== ENCOUNTER 2021-06-24 05:31 | Outpatient (CLI) | payer BC ==
[~2021-06-24] VITALS: Ht 137.1 cm; Wt 74.2 kg
[~2021-06-24 05:31] MED LIST changes: +ACHD5005 PO; +CYCL10TA25 PO; -CYCL10TA9 PO; -FERR-74 PO; +FERR325T18 PO; -HYDR-3812 PO; +NAPR-1071 PO; -NAPR500T PO
== END 2021-06-25 10:58 | disposition home or self-care (01) ==
LOC: PREOP 05:31
PROVIDERS: ATTEND Obstetrics & Gynecology
DX: Z01.818 Encounter for other preprocedural examination (principal)

== ENCOUNTER 2021-07-01 05:56 | Inpatient (IN) | payer BC ==
[~2021-07-01] VITALS: Ht 145 cm; Wt 75.5 kg
[2021-07-01] VITALS (11 sets, daily range): BP systolic 100–114; BP diastolic 46–75
[2021-07-01] MEDS ORDERED: ceFAZolin 2 GM IV Premixed 50 ML IV ONE (08:00)
[2021-07-01] MEDS ORDERED: CITRIC ACID/SOB CIT (BICITRA) 30 ML UDC PO ONE (08:00)
[2021-07-01] MEDS ORDERED: METOCLOPRAMIDE INJ 10 MG/2 ML (REGLAN) IV ONE (08:00)
[2021-07-01] MEDS ORDERED: FAMOTIDINE 20MG/2ML IV (PEPCID) IV ONE (08:00)
[2021-07-01] MEDS ORDERED: LACTATED RINGERS 1,000 ML IV SCH (08:00)
[2021-07-01] MEDS ORDERED: KETOROLAC 30 MG/ML VIAL ONE (08:13)
[2021-07-01] MEDS ORDERED: ONDANSETRON 4 MG/2 ML (SDV) Z0FRAN ONE (08:13)
[2021-07-01] MEDS ORDERED: fentaNYL INJ 100 MCG/2 ML AMP ONE (08:13)
[2021-07-01] MEDS ORDERED: OXYTOCIN PRE-MIX DRIP 1,000 ML IV ONE (08:13)
[2021-07-01 08:19] LABS: BASOPHILS % (AUTO) 0 % (0-10); EOSINOPHILS # (AUTO) 0.2 10^3/uL (0.0-0.3); EOSINOPHILS % (AUTO) 2 % (0-10); HEMATOCRIT 36 % (35-52); HEMOGLOBIN 11.8 g/dL (11.5-16.0); LYMPHOCYTES % (AUTO) 22 % (12-44); MEAN CORPUSCULAR HEMOGLOBIN 27 pg (25-34); MEAN CORPUSCULAR HGB CONC 33 g/dL (32-36); MEAN CORPUSCULAR VOLUME 83 fL (80-99); MEAN PLATELET VOLUME 10.7 fL (9.0-12.2); MONOCYTES # (AUTO) 0.7 10^3/uL (0.0-1.0); MONOCYTES % (AUTO) 8 % (0-12); NEUTROPHILS # (AUTO) 6.2 10^3/uL (1.8-7.8); NEUTROPHILS % (AUTO) 68 % (42-75); PLATELET COUNT 226 10^3/uL (130-400); WHITE BLOOD COUNT 9.1 10^3/uL (4.3-11.0)
--- NOTE | 2021-07-01 08:20 | History & Physical-OB ---
OB - Chief Complaint & HPI Date/Time Date of Admission: Date of Admission: Jul 01, 2021 at 07:40 Date seen by a Provider: Jul 01, 2021 Time Seen by a Provider: 08:00 Chief Complaint/History OB-Reason for Admission/Chief: Section Hx : 2 Hx Para: 1 Expected Date of Delivery: Jul 07, 2021 Gestational Age in Weeks: 39 Gestational Age in Days: 1 Indication for : desires repeat Other reason for admission: uncomplicated Admission Nurse Assessment Rev: Yes History of Labs A+/- HIV - HBsAg - Rub I VDRL NR GBS - Other uncomplicated Allergies and Home Medications Allergies Coded Allergies: No Known Drug Allergies (Unverified , 06/25/21) Patient Home Medication List Home Medication List Reviewed: Yes No Active Prescriptions or Reported Meds OB - History Hx of Present Ultrasounds: Normal mid trimester US Obstetrical Complications: None Medical Complications: None Information Induced Hypertension: No Maternal Gestational Diabetes: No Hemorrhage: No Obstetrical History Hx : 2 Hx Para: 1 Hx # Term Pregnancies: 1 Hx Termination: No Hx Multiple Gestation: No Hx Stillbirth: No Hx Complication: No Hx Induced Hypertens: No Hx Maternal Gestational Diabet: No Delivery History Hx Dystocia: No Hx Large For Gestational Age I: No Hx Small for Gestational Age I: No Hx Section: Yes Hx Vaginal Delivery Post C-Sec: No Hx Blood Disorders: No Adverse Rxn to Tranfusion: No Patient Past Medical History PMHx: Latent tuberculosis (dx during ) PSurgHx: Denies Social History/Family History Alcohol Use: Denies Use Smoking Cessation: Never smoker 2nd Hand Smoke Exposure: No Immunizations First/Initial COVID19 Vaccine: APRIL 26, 2021 Second COVID19 Vaccination: MAY 26, 2021 Tetanus Booster (TDap): Less than 5yrs Rubella: immune RPR/VDRL: Negative GBS Status: Negative HBsAG: Negative OB - Admission Exam Physical Exam Heart: Rhythm Normal Lungs: Clear Abdomen: Gravid Heart Rate: 140's Accelerations: Accelerations Present Decelerations: No Decelerations Short Term Variability: Present Director Information Security Variability: Average (6-25) Contractions on Admission: None OB - Assessment/Plan/Diagnosis Assessment Assessment: section Admission Dx 39 week gestation Previous section Admission Status: Inpatient Order (span 2 midnights) Reason for Inpatient Admission: section Plan Plan: Section Other Plan Risk of bleeding, infection, injury to bowel, bladder and ureter. Plan repeat section. Consents signed. prophylactic antibiotics and SCDs TELLO BOYD DO Jul 01, 2021 08:20
[2021-07-01] MEDS: LACTATED RINGERS 1,000 ML IV SCH ×2 (08:26→08:58)
[2021-07-01 08:57] LABS: BILIRUBIN,URINE NEGATIVE (NEGATIVE); CLARITY,URINE CLEAR; COLOR,URINE YELLOW; GLUCOSE, URINE (UA) NEGATIVE (NEGATIVE); KETONES,URINE NEGATIVE (NEGATIVE); LEUKOCYTE ESTERASE ,URINE NEGATIVE (NEGATIVE); NITRITE,URINE NEGATIVE (NEGATIVE); PROTEIN,URINE NEGATIVE (NEGATIVE)
[2021-07-01] MEDS ORDERED: BUPIVACAINE 0.25% 30 ML (SENSORCAINE) VIAL ONE (09:04)
[2021-07-01 09:08] LABS: BACTERIA,URINE NEGATIVE /HPF
[2021-07-01] MEDS ORDERED: METHYLERGONOVINE 0.2 MG/ML (METHERGINE) AMP ONE ×2 (09:13→09:18)
--- NOTE | 2021-07-01 09:46 | Cesarean Section Operative ---
Procedure Procedure Note Pre-operative Diagnosis: Morenita Steele is a 25 /Para 2 / 1, Gestational Age 39 1/7 weeks, previous section Post-operative Diagnosis: same Procedure: Primary low transverse section Physician: TELLO BOYD Estimated blood loss: 400 mL Disposition: stable Findings: Viable female , Apgars 9/9, weight 7#1ounce, intact placenta, 3vc, normal appearing uterus, tubes, and ovaries. Indications:Morenita Steele is a 25 /Para 2 / 1,Gestational Age 39 1/7 weeks, previous section Procedure Details: The patient was seen in pre-op and the procedure was discussed with the patient in full, including the risks, benefits, and alternatives. All questions were answered. The patient was taken to the operating room and a time out was performed, verifying patient and procedure. After spinal anesthesia was placed by our anesthesia colleagues, the patient was placed in the dorsal supine with leftward tilt for uterine displacement.~ Her abdomen was then prepped and draped in the typical sterile fashion. A Pfannenstiel skin incision was made using a scalpel and carried down through the underlying fascia. The fascia was incised in the midline and tented up using Esme clamps. On both the inferior and superior fascia side the rectus muscle was dissected off bluntly and sharply using Lowery scissors. The peritoneum was identified and entered bluntly in the midline. This was then stretched laterally using manual strength. After entering the abdominal cavity and confirming lack of intraperitoneal adhesions, a large Ac retractor was placed and the lower uterine segment was visualized. A scalpel was utilized to make a low transverse uterine incision. Amniotomy was performed with an Allis clamp with return of clear fluid. The 's head was grasped with assistance of a silastic suction, and brought to the level of the incision. Fundal pressure was applied and infant was delivered without difficulty. Mouth and nares were suctioned with bulb suction. After the umbilical cord was clamped and cut, the was handed off to the pediatric staff. A sample of cord blood was then obtained. The placenta was delivered intact via uterine massage. The uterus was exteriorized and cleared of all clots and debris. The uterine incision was closed using 0 Vicryl in a running locked fashion. A second imbricated layer was placed using 0 Vicryl in a running fashion as well. The bilateral tubes and ovaries appeared normal. The uterus was noted to be hypotonic at the fundus and there was some oozing from the incision. She was given pitocin and then, with uterine massage, and methergine x 2 (1 was IM and 1 was intrauterine), there was improvement in the contractility of the uterus. The uterus was then placed back into the abdominal cavity and abdominal gutters were cleared of all clots and debris. A final check of the uterine incision showed it to be hemostatic. The peritoneum was closed using 3-0 Vicryl in a running fashion. The fascia was closed with 0 PDS in a running fashion. The subcutaneous space was hemostatic, and irrigated. The subcutaneous space was closed with 3-0 Vicryl in several single interrupted stitches. The skin was then closed using 4-0 Monocryl in a running subcuticular fashion. The skin edges were reapproximated together and were hemostatic. A pressure dressing was applied. All sponge, lap and needle counts were correct at the end of the procedure per nursing. Vitals - Labs Vital Signs - I&O Vital Signs Date Time Temp Pulse Resp B/P (MAP) Pulse Ox O2 Delivery O2 Flow Rate FiO2 07/01/21 08:00 36.8 80 18 101/58 (72) Room Air Labs Laboratory Tests 07/01/21 08:10: White Blood Count 9.1, Red Blood Count 4.35, Hemoglobin 11.8, Hematocrit 36, Mean Corpuscular Volume 83, Mean Corpuscular Hemoglobin 27, Mean Corpuscular Hemoglobin Concent 33, Red Cell Distribution Width 14.4, Platelet Count 226, Mean Platelet Volume 10.7, Immature Granulocyte % (Auto) 0, Neutrophils (%) (Auto) 68, Lymphocytes (%) (Auto) 22, Monocytes (%) (Auto) 8, Eosinophils (%) (Auto) 2, Basophils (%) (Auto) 0, Neutrophils # (Auto) 6.2, Lymphocytes # (Auto) 2.0, Monocytes # (Auto) 0.7, Eosinophils # (Auto) 0.2, Basophils # (Auto) 0.0, Immature Granulocyte # (Auto) 0.0 07/01/21 08:30: Urine Color YELLOW, Urine Clarity CLEAR, Urine pH 6.0, Urine Specific [place] 1.020, Urine Protein NEGATIVE, Urine Glucose (UA) NEGATIVE, Urine Ketones NEGATIVE, Urine Nitrite NEGATIVE, Urine Bilirubin NEGATIVE, Urine Urobilinogen 0.2, Urine Leukocyte Esterase NEGATIVE, Urine RBC (Auto) NEGATIVE, Urine RBC NON E, Urine WBC NONE, Urine Squamous Epithelial Cells 2-5, Urine Crystals NONE, Urine Bacteria NEGATIVE, Urine Casts NONE, Urine Mucus NEGATIVE, Urine Culture Indicated NO TELLO BOYD DO Jul 01, 2021 09:45
[2021-07-01] MEDS ORDERED: TETANUS,DIPTH,PERTUSS P/F (BOOSTRIX) 0.5 ML VIAL IM SCH (10:00)
[2021-07-01] MEDS ORDERED: morphine INJ 4 MG/ML 1 ML (VIAL/SYRINGE) IV PRN (10:00)
[2021-07-01] MEDS ORDERED: NALOXONE 0.4 MG/ML 1 ML (NARCAN) VIAL IV PRN (10:00)
[2021-07-01] MEDS ORDERED: MEASLES,MUMPS,RUBELLA 1 EA INJ SC SCH (10:00)
[2021-07-01] MEDS ORDERED: METHYLERGONOVINE 0.2 MG (MEHTERGINE) TAB PO SCH (11:00)
[2021-07-01] MEDS: OXYTOCIN PRE-MIX DRIP 500 ML IV SCH ×2 (11:24→12:33)
[2021-07-01] MEDS ORDERED: CATHETER FLUSH 10 ML SYR IV SCH (14:00)
[2021-07-01] MEDS: KETOROLAC 30 MG/ML VIAL IV SCH ×2 (14:53→21:12)
[2021-07-01] MEDS: ACETAMINOPHEN 500 MG TAB (TYLENOL) PO SCH (18:14)
[2021-07-01] MEDS: DOCUSATE SODIUM 100 MG (COLACE) CAP PO SCH (21:12)
[2021-07-02 00:40] VITALS: BP 96/51
[2021-07-02 03:24] VITALS: BP 99/55
[2021-07-02] MEDS: KETOROLAC 30 MG/ML VIAL IV SCH ×2 (03:25→21:31)
[2021-07-02 07:29] LABS: BASOPHILS % (AUTO) 0 % (0-10); EOSINOPHILS # (AUTO) 0.1 10^3/uL (0.0-0.3); EOSINOPHILS % (AUTO) 1 % (0-10); HEMATOCRIT 30 % (35-52); HEMOGLOBIN 9.7 g/dL (11.5-16.0); LYMPHOCYTES # (AUTO) 1.7 10^3/uL (1.0-4.0); LYMPHOCYTES % (AUTO) 16 % (12-44); MEAN CORPUSCULAR HEMOGLOBIN 27 pg (25-34); MEAN CORPUSCULAR HGB CONC 32 g/dL (32-36); MEAN CORPUSCULAR VOLUME 84 fL (80-99); MEAN PLATELET VOLUME 10.7 fL (9.0-12.2); MONOCYTES # (AUTO) 0.9 10^3/uL (0.0-1.0); MONOCYTES % (AUTO) 8 % (0-12); NEUTROPHILS # (AUTO) 8.1 10^3/uL (1.8-7.8); NEUTROPHILS % (AUTO) 75 % (42-75); PLATELET COUNT 183 10^3/uL (130-400); WHITE BLOOD COUNT 10.8 10^3/uL (4.3-11.0)
--- NOTE | 2021-07-02 08:52 | Anesthesia-Regional Post-Op ---
Regional Patient Condition Mental Status: Alert, Oriented x3 Circulation: Same as Pre-Op Headache: Absent Sensation: Full Recovery Motor Block: Absent Post Op Complications Complications None Follow Up Care/Instructions Patient Instructions None needed. Anesthesia/Patient Condition Patient is doing well, no complaints, stable vital signs, no apparent adverse anesthesia problems. No complications reported per nursing. D/C home per [facility] [place] Criteria: No LOR LE CRNA Jul 02, 2021 08:52
--- NOTE | 2021-07-02 09:07 | Postpartum Progress Note ---
Post Op Post-operative Day #1 s/p RLTCS Subjective: Patient is without complaints. Ambulating, voiding after roberson removed. Tolerating a regular diet without nausea or vomiting. Normal lochia. Pain is well controlled with oral pain medications. Passing flatus. breast/bottle feeding. Objective: 07/01/21 07/02/21 07/02/21 21:11 00:40 03:24 Temp 36.6 37.3 36.8 Pulse 94 72 84 Resp 18 18 18 B/P (MAP) 100/57 (71) 96/51 (66) 99/55 (70) Pulse Ox 97 97 95 O2 Delivery Room Air Room Air Room Air 07/02/21 00:00 Intake Total 880 ml Output Total 1900 ml Balance -1020 ml Laboratory Tests Test 07/02/21 06:52 Range/Units White Blood Count 10.8 4.3-11.0 10^3/uL Red Blood Count 3.58 L 3.80-5.11 10^6/uL Hemoglobin 9.7 L 11.5-16.0 g/dL Hematocrit 30 L 35-52 % Mean Corpuscular Volume 84 80-99 fL Mean Corpuscular Hemoglobin 27 25-34 pg Mean Corpuscular Hemoglobin Concent 32 32-36 g/dL Red Cell Distribution Width 14.6 H 10.0-14.5 % Platelet Count 183 130-400 10^3/uL Mean Platelet Volume 10.7 9.0-12.2 fL Immature Granulocyte % (Auto) 0 % Neutrophils (%) (Auto) 75 42-75 % Lymphocytes (%) (Auto) 16 12-44 % Monocytes (%) (Auto) 8 0-12 % Eosinophils (%) (Auto) 1 0-10 % Basophils (%) (Auto) 0 0-10 % Neutrophils # (Auto) 8.1 H 1.8-7.8 10^3/uL Lymphocytes # (Auto) 1.7 1.0-4.0 10^3/uL Monocytes # (Auto) 0.9 0.0-1.0 10^3/uL Eosinophils # (Auto) 0.1 0.0-0.3 10^3/uL Basophils # (Auto) 0.0 0.0-0.1 10^3/uL Immature Granulocyte # (Auto) 0.0 0.0-0.1 10^3/uL Physical Exam: General - Alert and oriented, no apparent distress Abdomen - Soft, appropriately tender to palpation, non-distended, fundus firm at umbilicus Incision - clean, dry and intact; no erythema or induration, no drainage Extremities - no edema, negative Db's bilaterally Assessment: 1. post-operative day # 1, status post RLTCS. Recovering well, hemodynamically stable Plan: Routine post-operative care. Encourage breast feeding. Encourage ambulation. VTE prophylaxis: SCDs. Ferrous sulfate supplementation. Plan for discharge tomorrow Vitals - Labs Vital Signs - I&O Vital Signs Date Time Temp Pulse Resp B/P (MAP) Pulse Ox O2 Delivery O2 Flow Rate FiO2 07/02/21 03:24 36.8 84 18 99/55 (70) 95 Room Air 07/02/21 00:40 37.3 72 18 96/51 (66) 97 Room Air 07/01/21 21:11 36.6 94 18 100/57 (71) 97 Room Air 07/01/21 16:36 37.6 86 18 105/52 (69) 97 Room Air 07/01/21 14:37 Room Air 07/01/21 12:10 37.5 87 18 105/56 (72) 97 Room Air 07/01/21 11:04 37.4 74 18 105/62 (76) 98 Room Air 07/01/21 10:49 Room Air 07/01/21 10:49 36.7 17 103/65 (78) 98 Room Air 07/01/21 10:30 20 109/72 (84) 99 Room Air 07/01/21 10:20 Room Air 07/01/21 10:20 18 113/75 (88) 97 Room Air 07/01/21 10:10 18 114/75 (88) 98 Room Air 07/01/21 10:00 Room Air 07/01/21 10:00 17 103/46 (65) 98 Room Air 07/01/21 09:49 36.6 16 105/66 (79) 97 Room Air 07/01/21 09:49 Room Air I & O 07/02/21 07:00 Intake Total 1930 ml Output Total 2800 ml Balance -870 ml Labs Laboratory Tests 07/02/21 06:52: White Blood Count 10.8, Red Blood Count 3.58L, Hemoglobin 9.7L, Hematocrit 30L, Mean Corpuscular Volume 84, Mean Corpuscular Hemoglobin 27, Mean Corpuscular Hemoglobin Concent 32, Red Cell Distribution Width 14.6H, Platelet Count 183, Mean Platelet Volume 10.7, Immature Granulocyte % (Auto) 0, Neutrophils (%) (Au to) 75, Lymphocytes (%) (Auto) 16, Monocytes (%) (Auto) 8, Eosinophils (%) (Auto) 1, Basophils (%) (Auto) 0, Neutrophils # (Auto) 8.1H, Lymphocytes # (Auto) 1.7, Monocytes # (Auto) 0.9, Eosinophils # (Auto) 0.1, Basophils # (Auto) 0.0, Immature Granulocyte # (Auto) 0.0 TELLO BOYD DO Jul 02, 2021 09:07
[2021-07-02 09:50] VITALS: BP 101/54
[2021-07-02] MEDS: ACETAMINOPHEN 500 MG TAB (TYLENOL) PO SCH ×3 (09:55→21:31)
[2021-07-02] MEDS: DOCUSATE SODIUM 100 MG (COLACE) CAP PO SCH ×2 (09:55→20:59)
[2021-07-02] MEDS: FERROUS SULF 325 MG (IRON) TAB PO SCH (09:55)
[2021-07-02 13:30] VITALS: BP 97/53
[2021-07-02] MEDS: IBUPROFEN 600 MG (MOTRIN) TAB PO SCH ×2 (13:30→18:39)
[2021-07-02] MEDS ORDERED: IBUP-844 PO (16:18)
[2021-07-02] MEDS ORDERED: ACET-93 PO (16:18)
[2021-07-02] MEDS ORDERED: DOCU100C37 PO (16:18)
[2021-07-02] MEDS ORDERED: FERR325T24 PO (16:18)
--- NOTE | 2021-07-02 16:20 | Discharge Inst-Women's Service ---
Discharge Inst-Women's Serv Depart Medication/Instructions New, Converted or Re-Newed RX: Transmitted to Pharmacy Final Diagnosis previous section anemia 39 week gestation Problems Reviewed?: Yes Consults/Follow Up Additional Follow Up: Yes (1 week for incision check at [facility]- and then 6 week pp at [facility]) Activity Activity: Activity as Tolerated Driving Instructions: No Driving for 1 Week NO SMOKING: NO SMOKING Nothing Inside Vagina: No Douching, No [place], No Tampons Diet Discharge Diet: No Restrictions Symptoms to Report to : Swelling Increased, Bleeding Excessive, Pain Increased, Fever Over 101 Degrees F, Vaginal Bleeding Increase, Cramps in Feet or Legs, Vaginal Discharge Foul For Any Problems or Questions: Contact Your Physician Skin/Wound Care Infection Signs and Symptoms: Increased Redness, Foul Odor of Wound, Increased Drainage, Skin Itchy or Has a Rash, Increased Swelling, Temperature Above 101 F Operative Area Clean and Dry: Keep Incision Clean/Dry Stitches/Jacey/Dermabond: Dermabond Bathing Instructions: TELLO Sullivan DO Jul 02, 2021 16:19
[2021-07-02 18:37] VITALS: BP 100/56
[2021-07-03] MEDS: IBUPROFEN 600 MG (MOTRIN) TAB PO SCH ×2 (00:58→06:56)
[2021-07-03 00:59] VITALS: BP 101/52
[2021-07-03] MEDS: ACETAMINOPHEN 500 MG TAB (TYLENOL) PO SCH ×2 (03:03→11:19)
[2021-07-03 06:54] VITALS: BP 91/55
[2021-07-03] MEDS: FERROUS SULF 325 MG (IRON) TAB PO SCH (06:56)
[2021-07-03 09:10] VITALS: BP 96/54
[2021-07-03] MEDS: DOCUSATE SODIUM 100 MG (COLACE) CAP PO SCH (09:27)
--- NOTE | 2021-07-03 10:12 | Postpartum Progress Note ---
Post Op Post-operative Day #2 Subjective: Patient is without complaints. Ambulating, voiding after roberson removed. Tolerating a regular diet without nausea or vomiting. Normal lochia. Pain is well controlled with oral pain medications. Passing flatus. . She is interested in discharge today. Objective: See below for vitals. Physical Exam: General - Alert and oriented, no apparent distress Abdomen - Obese. Soft, appropriately tender to palpation, non-distended, fundus firm below the umbilicus Incision - Pfannenstiel incision is clean, dry and intact; no erythema or induration, no drainage. Skin glue is noted along the incision. Extremities - no edema, negative Db's bilaterally Assessment: Post-operative day # 2, status post repeat section. Recovering well, hemodynamically stable Plan: Routine post-operative care. Encourage breast feeding. Viable female . Circ not applicable. VTE prophylaxis: SCDs. Encourage ambulation. Acute blood loss anemia: preop hgb 11.8 --> postop 9.7. Ferrous sulfate supplementation. Plans to discuss contraception options with her Provider in 6 weeks. Plan for discharge today. Vitals - Labs Vital Signs - I&O Vital Signs Date Time Temp Pulse Resp B/P (MAP) Pulse Ox O2 Delivery O2 Flow Rate FiO2 07/03/21 09:10 36.8 86 20 96/54 (68) 97 Room Air 07/03/21 06:54 37.2 80 18 91/55 (67) 98 Room Air 07/03/21 00:59 37.7 90 20 101/52 (68) 95 Room Air 07/02/21 18:37 37.0 95 18 100/56 (71) 96 Room Air 07/02/21 13:30 36.5 94 18 97/53 (68) 98 Room Air I & O 07/03/21 07:00 Intake Total 1530 ml Output Total 350 ml Balance 1180 ml JOSE ECHOLS MD Jul 03, 2021 10:12
[2021-07-03 12:16] VITALS: BP 104/55
== END 2021-07-03 13:30 | disposition home or self-care (01) | DRG 787 ==
LOC: LDRP 07:40
PROVIDERS: ADMIT Obstetrics & Gynecology; ATTEND Obstetrics & Gynecology
PROC: 10D00Z1 Extraction of Products of Conception, Low, Open Approach (ICD-10-PCS; principal; 2021-07-01 08:38)
DX: O34.211 Maternal care for low transverse scar from previous cesarean delivery (principal); D62 Acute posthemorrhagic anemia; Z37.0 Single live birth; O90.81 Anemia of the puerperium; Z3A.39 39 weeks gestation of pregnancy; Z23 Encounter for immunization
CPT/HCPCS: 36415; 81000; 85025; 86850; 86900; 86901; 90715; 94664

== ENCOUNTER 2021-09-27 10:09 | Emergency (ER) | payer BC ==
[~2021-09-27] VITALS: Ht 146 cm; Wt 68.0 kg
[~2021-09-27 10:09] MED LIST changes: +ACET-93 PO; +DOCU100C37 PO; +FERR325T24 PO; +IBUP-844 PO
[2021-09-27 10:15] VITALS: BP 131/84
--- NOTE | 2021-09-27 10:36 | ED GU-Female ---
General Stated Complaint: ABNORMAL VAG BLEEDING Source: patient, family () Exam Limitations: no limitations History of Present Illness Date Seen by Provider: Sep 27, 2021 Time Seen by Provider: 10:20 Initial Comments Patient is a 26-year-old female G2, P2 last delivery 4 months ago tomorrow. C- section delivery. Patient had her first 4 years ago, secondary to large baby, 10 pounds. She states she woke up this morning with chief complaint of left lower quadrant/pelvic pain and heavy vaginal bleeding. She has not had normal menstruation since delivery. She has gone through 24 pads since getting up this morning. Rates her pain at a "9". She states she had similar issues after she had her first baby and had to have surgery for the vaginal bleeding. She feels lightheaded and dizzy when she stands up. slightly nauseated. She denies illness such as fevers, chills, diarrhea, burning with urination. She has been sexually active in the last 4 months. No control. Only daily medication is a vitamin with iron. No allergies to medications. All other review of systems reviewed and negative except as stated. Timing/Duration: this morning Severity/Quality: severe, cramping (LLQ) Radiation: none Activities at Onset: none Sexual [place] History: single partner Modifying Factors: Worsens With Movement Associated Symptoms: abdominal pain, nausea/vomiting Allergies and Home Medications Allergies Coded Allergies: No Known Drug Allergies (Unverified , 06/25/21) Patient Home Medication List Home Medication List Reviewed: Yes Acetaminophen (Acetaminophen) 500 Mg Tablet, 1,000 MG PO Q8HR Prescribed by: TELLO BOYD on 07/02/211617 Docusate Sodium (Docusate Sodium) 100 Mg Capsule, 100 MG PO BID Prescribed by: TELLO BOYD on 07/02/21 161 Ferrous Sulfate (Ferosul) 325 Mg Tablet, 325 MG PO DAILY@0700 Prescribed by: TELLO BOYD on 07/02/21 161 Ibuprofen (Ibu) 600 Mg Tablet, 600 MG PO Q6HR Prescribed by: TELLO BOYD on 07/02/211617 Review of Systems Review of Systems Constitutional: see HPI EENTM: no symptoms reported Respiratory: no symptoms reported Cardiovascular: no symptoms reported Gastrointestinal: abdominal pain (LLQ), nausea Genitourinary: other (vaginal bleeding) Musculoskeletal: no symptoms reported Skin: no symptoms reported All Other Systemes Reviewed Negative Unless Noted: Yes Past Vsyqgzj-Yudgkr-Iypzlp Hx Immunizations Up To Date Tetanus Booster (TDap): Less than 5yrs PED Vaccines UTD: Yes First/Initial COVID19 Vaccinat: APRIL 26, 2021 Second COVID19 Vaccination Kevin: MAY 26, 2021 Seasonal Allergies Seasonal Allergies: No Past Medical History Surgeries: Yes (1 C SECTION) Respiratory: Yes Currently Using CPAP: No Currently Using BIPAP: No Cardiac: No Neurological: No Reproductive Disorders: No Female Reproductive Disorders: Denies Sexually Transmitted Disease: No HIV/AIDS: No Genitourinary: No Gastrointestinal: No Musculoskeletal: No Endocrine: No HEENT: No Cancer: No Psychosocial: No Integumentary: No Blood Disorders: No Adverse Reaction/Blood Tranf: No Family Medical History Patient reports no known family medical history. No Pertinent Family Hx Physical Exam Vital Signs Vital Signs - First Documented 09/27/21 10:15 Temp 35.8 Pulse 76 Resp 18 B/P (MAP) 131/84 (100) Pulse Ox 99 Capillary Refill : Height, Weight, BMI Height: 4'5.00" Weight: 160lbs. 0.0oz. [id number]; 35.90 BMI Method:Stated General Appearance: WD/WN, no apparent distress HEENT: PERRL/EOMI, normal ENT inspection, pharynx normal Neck: full range of motion, supple, normal inspection Cardiovascular: regular rate, rhythm Respiratory: lungs clear, normal breath sounds, no respiratory distress, no accessory muscle use Gastrointestinal: soft, tenderness (LLQ) Genital/Rectal: normal genital exam Pelvic: normal external exam, other (Slight tenderness in the left adnexa. No cervical motion tenderness. She had slight bleeding from the cervical os which appeared nulliparous (patient has had C-sections no vaginal deliveries); no abnormal vaginal discharge noted. No masses or lesions are visualized) Extremities: normal range of motion, non-tender, normal inspection, no pedal edema Neurologic/Psychiatric: alert, normal mood/affect, oriented x 3 Skin: normal color, warm/dry Progress/Results/Core Measures Suspected Sepsis SIRS Temperature: Pulse: Respiratory Rate: Laboratory Tests 09/27/21 10:25: White Blood Count 7.8 Blood Pressure / Mean: Laboratory Tests 09/27/21 10:25: Creatinine 0.59L, Platelet Count 310 Results/Orders Lab Results Laboratory Tests Test 09/27/21 10:25 Range/Units White Blood Count 7.8 4.3-11.0 10^3/uL Red Blood Count 4.39 3.80-5.11 10^6/uL Hemoglobin 11.9 11.5-16.0 g/dL Hematocrit 37 35-52 % Mean Corpuscular Volume 83 80-99 fL Mean Corpuscular Hemoglobin 27 25-34 pg Mean Corpuscular Hemoglobin Concent 33 32-36 g/dL Red Cell Distribution Width 14.4 10.0-14.5 % Platelet Count 310 130-400 10^3/uL Mean Platelet Volume 10.6 9.0-12.2 fL Immature Granulocyte % (Auto) 0 % Neutrophils (%) (Auto) 63 42-75 % Lymphocytes (%) (Auto) 29 12-44 % Monocytes (%) (Auto) 6 0-12 % Eosinophils (%) (Auto) 2 0-10 % Basophils (%) (Auto) 1 0-10 % Neutrophils # (Auto) 4.9 1.8-7.8 10^3/uL Lymphocytes # (Auto) 2.3 1.0-4.0 10^3/uL Monocytes # (Auto) 0.5 0.0-1.0 10^3/uL Eosinophils # (Auto) 0.1 0.0-0.3 10^3/uL Basophils # (Auto) 0.0 0.0-0.1 10^3/uL Immature Granulocyte # (Auto) 0.0 0.0-0.1 10^3/uL Percent Immature Platelet Fraction 3.3 0.0-7.6 % Sodium Level 138 135-145 MMOL/L Potassium Level 4.0 3.6-5.0 MMOL/L Chloride Level 107 98-107 MMOL/L Carbon Dioxide Level 18 L 21-32 MMOL/L Anion Gap 13 5-14 MMOL/L Blood Urea Nitrogen 15 7-18 MG/DL Creatinine 0.59 L 0.60-1.30 MG/DL Estimat Glomerular Filtration Rate 126 BUN/Creatinine Ratio 25 Glucose Level 91 70-105 MG/DL Calcium Level 9.6 8.5-10.1 MG/DL Serum Test, Qualitative NEGATIVE NEGATIVE My Orders Orders - LUCIEN DAVIS MD Ed Iv/Invasive Line Start (09/27/21 10:28) Cbc With Automated Diff (09/27/21 10:28) Basic Metabolic Panel (09/27/21 10:28) Hcg,Qualitative Serum (09/27/21 10:28) Fentanyl Inj (Sublimaze Injection) (09/27/21 10:45) Ketorolac Injection (Toradol Injection) (09/27/21 11:30) Medications Given in ED Current Medications Medications Dose Ordered Sig/Whit Route Start Time Stop Time Status Last Admin Dose Admin Fentanyl Citrate 25 mcg ONCE ONCE IVP 09/27/21 10:45 09/27/21 10:46 DC 09/27/21 10:52 25 MCG Ketorolac Tromethamine 15 mg ONCE ONCE IVP 09/27/21 11:30 09/27/21 11:31 DC 09/27/21 11:20 15 MG Vital Signs/I&O 09/27/21 10:15 Temp 35.8 Pulse 76 Resp 18 B/P (MAP) 131/84 (100) Pulse Ox 99 Capillary Refill : Progress Note : Time: 11:34 Progress Note Patient has had 25 mcg of fentanyl as well as 15 mg of Toradol. Her pain is improved but not gone. CBC is normal. Chemistry is normal serum test is negative. She has stable vital signs, not tachycardic not hypotensive. I do not believe there is any indication for emergent pelvic ultrasound or [employer] consultation. I advised her that we would send her home with naproxen and follow-up CBC on Wednesday. I have instructed her to follow-up also with Dr. Forrest at [facility] clinic. Both she and her verbalized understanding of the discharge instructions. All questions are sought and answered. Patient is stable for discharge. \\ did also inform me that prior to this Morenita would skip 2 to 3 months of menstrual cycles and then bleed very heavily, she is thinking that maybe this is just a recurrence of her "normal" irregular periods. Departure Impression Primary Impression: Dysfunctional uterine bleeding Additional Impression: Abdominal pain Qualified Codes: R10.32 - Left lower quadrant pain Disposition: HOME, SELF-CARE Condition: Stable Departure-Patient Inst. Decision time for Depature: 11:36 Referrals: KYARA FORREST MD (PCP/Family) Primary Care Physician Patient Instructions: Heavy Periods ED Add. Discharge Instructions: Take the naproxen, 1 tablet twice daily. You can start this evening with your f irst dose. Take this medication with food. This should slow down your bleeding and help with cramping. Do not take extra ibuprofen while taking naproxen. You can take extra strength Tylenol however, 2 tablets every 6 hours as needed. You need to come back to the hospital on Wednesday for a repeat blood count. Please call Dr. Forrest's office on Wednesday for a follow-up appointment next week. If you have a passing out spell before Wednesday, run fever, have worse belly pain or any other emergent concerning symptoms please come back to the emergency room for reevaluation. Scripts Naproxen (Naprosyn) 500 Mg Tablet 500 MG PO BID, #20 TAB 0 Refills Prov: LUCIEN DAVIS MD 09/27/21 Copy Copies To 1: KYARA FORREST MD, KATHRYN M MD Sep 27, 2021 10:36
[2021-09-27 10:37] LABS: BASOPHILS % (AUTO) 1 % (0-10); EOSINOPHILS # (AUTO) 0.1 10^3/uL (0.0-0.3); EOSINOPHILS % (AUTO) 2 % (0-10); HEMATOCRIT 37 % (35-52); HEMOGLOBIN 11.9 g/dL (11.5-16.0); LYMPHOCYTES # (AUTO) 2.3 10^3/uL (1.0-4.0); LYMPHOCYTES % (AUTO) 29 % (12-44); MEAN CORPUSCULAR HEMOGLOBIN 27 pg (25-34); MEAN CORPUSCULAR HGB CONC 33 g/dL (32-36); MEAN CORPUSCULAR VOLUME 83 fL (80-99); MEAN PLATELET VOLUME 10.6 fL (9.0-12.2); MONOCYTES # (AUTO) 0.5 10^3/uL (0.0-1.0); MONOCYTES % (AUTO) 6 % (0-12); NEUTROPHILS # (AUTO) 4.9 10^3/uL (1.8-7.8); NEUTROPHILS % (AUTO) 63 % (42-75); PLATELET COUNT 310 10^3/uL (130-400); WHITE BLOOD COUNT 7.8 10^3/uL (4.3-11.0)
[2021-09-27] MEDS ORDERED: fentaNYL INJ 100 MCG/2 ML AMP IVP ONE (10:45)
[2021-09-27 10:55] LABS: CALCIUM 9.6 MG/DL (8.5-10.1); CREATININE SERUM 0.59 MG/DL (0.60-1.30)
[2021-09-27] MEDS ORDERED: KETOROLAC 30 MG/ML VIAL IVP ONE (11:30)
[2021-09-27] MEDS ORDERED: NAPR-1071 PO (11:38)
== END 2021-09-27 11:53 | disposition home or self-care (01) ==
LOC: EDUNIT# 10:09 → ER 10:10
DX: N93.8 Other specified abnormal uterine and vaginal bleeding (principal); Z32.02 Encounter for pregnancy test, result negative
CPT/HCPCS: 36415; 80048; 84703; 85025